=== PATIENT | male | born 1975 | race Caucasian/White ===

== ENCOUNTER 2019-02-08 17:58 | Emergency (ER) | payer SELFPAY ==
[~2019-02-08] VITALS: Ht 182 cm; Wt 100.0 kg
[2019-02-08] MEDS ORDERED: LIDOCAINE 1% INJ 20 ML 20 ML VIAL ONE (18:17)
--- NOTE | 2019-02-08 18:27 | ED Integumentary General ---
General Chief Complaint: Bite-Animal/Human/Insect Stated Complaint: POSS SPIDER BITE ON BUTTOCKS Nursing Triage Note: PT REPORTS A RED AREA TWO NIGHTS AGO ON HIS BUTTOCKS. HE REPORTS IT IS LARGER AND HE NOW HAS A FEVER. HE TOOK 800MG IBUPROFEN 2 HOURS AGO Source: patient Exam Limitations: no limitations History of Present Illness Date Seen by Provider: Feb 08, 2019 Time Seen by Provider: 18:20 Initial Comments Patient complains of questionable spider bite to right buttock for 2 days. It is gotten larger in size and more painful. He has some bloody discharge from the wound. He says he has a temperature of 102 this morning. Allergies and Home Medications Patient Home Medication List Home Medication List Reviewed: Yes Review of Systems Review of Systems Constitutional: fever, malaise Respiratory: no symptoms reported Cardiovascular: no symptoms reported Skin: see HPI Past Olzeihz-Xlophf-Ypzzwd Hx Patient Social History Alcohol Use: Denies Use Recreational Drug Use: No Smoking Status: Current Everyday Smoker Type Used: Cigarettes 2nd Hand Smoke Exposure: No Recent Foreign Travel: No Contact w/Someone Who Travel: No Recent Infectious Disease Expo: No Recent Hopitalizations: No Physical Abuse: No Sexual Abuse: No Mistreated: No Fear: No Seasonal Allergies Seasonal Allergies: No Past Medical History Surgeries: Yes (RIGHT ANKLE) Respiratory: No Cardiac: No Neurological: No Genitourinary: No Gastrointestinal: No Musculoskeletal: No Endocrine: No HEENT: No Cancer: No Psychosocial: No Integumentary: No Blood Disorders: No Physical Exam Vital Signs Vital Signs - First Documented 02/08/19 18:10 Temp 37.9 Pulse 124 Resp 20 B/P (MAP) 121/73 (89) O2 Delivery Room Air Capillary Refill : Less Than 3 Seconds General Appearance: WD/WN, no apparent distress Neck: supple Cardiovascular: regular rate, rhythm Respiratory: lungs clear Extremities: normal inspection Neurologic/Psychiatric: alert, normal mood/affect Skin: normal color, warm/dry, other (large red fluctuant tender mass (plum size) 2 right mid buttocks) Procedures/Interventions I&D : Site: R buttocks Blade Size: 11 I & D Procedure: betadine prep, Wound Packing Packing/Drain: Idoform 02/10 Progress About 10 mL of pus and blood was obtained. Wound was packed with iodoform gauze. Patient tolerated procedure well. He was anesthetized with 1 percent lidocaine without epinephrine. Progress/Results/Core Measures Results/Orders Vital Signs/I&O 02/08/19 18:10 Temp 37.9 Pulse 124 Resp 20 B/P (MAP) 121/73 (89) O2 Delivery Room Air Blood Pressure Mean: 89 Departure Impression Primary Impression: Abscess of right buttock Disposition: 01 HOME, SELF-CARE Condition: Improved Departure-Patient Inst. Decision time for Depature: 18:38 Patient Instructions: Abscess Drainage, Percutaneous (DC) Add. Discharge Instructions: Take antibiotics as prescribed. Sitz baths twice daily. Low back in 48 hours. See your doctor for follow-up in 48 hours. If symptoms worsen (high fevers worsening pain or spreading of redness) seek medical attention preferably at a hospital with surgical and inpatient capabilities. All discharge instructions reviewed with patient and/or family. Voiced understanding. Scripts Sulfamethoxazole/Trimethoprim (Bactrim Ds Tablet) 1 Each Tablet 1 EACH PO BID, #20 TAB Prov: SAMMY ARREDONDO MD 02/08/19 SAMMY ARREDONDO MD Feb 08, 2019 18:27
[2019-02-08] MEDS ORDERED: LIDOCAINE 1% INJ 20 ML 20 ML VIAL INJ ONE (18:30)
[2019-02-08] MEDS ORDERED: SULF1TAB35 PO (18:39)
[2019-02-08 18:50] VITALS: BP 121/73
== END 2019-02-08 18:54 | disposition home or self-care (01) ==
LOC: EDUNIT# 17:58 → ER FS 18:01
DX: L02.31 Cutaneous abscess of buttock (principal); F17.210 Nicotine dependence, cigarettes, uncomplicated
CPT/HCPCS: 46050

== ENCOUNTER 2019-02-09 23:59 | Inpatient (IN) | payer SELFPAY ==
[~2019-02-09] VITALS: Ht 183 cm; Wt 103.4 kg
[~2019-02-09 23:59] MED LIST: SULF1TAB35 PO
[2019-02-10] MEDS ORDERED: LACTATED RINGERS 1,000 ML IV ONE (01:07)
[2019-02-10] MEDS ORDERED: PIPERACILLIN SODIUM/TAZOBACTAM 4.5 GM in NS (IVPB) 100 ML IV ONE (01:15)
[2019-02-10] MEDS ORDERED: KETOROLAC 30 MG/ML VIAL IVP ONE (01:15)
[2019-02-10] MEDS ORDERED: VANCOMYCIN INJECTION 1,000 MG in NS (IVPB) 250 ML IV ONE (01:15)
[2019-02-10 01:20] LABS: BASOPHILS % (AUTO) 0 % (0-10); EOSINOPHILS # (AUTO) 0.3 10^3/uL (0.0-0.3); EOSINOPHILS % (AUTO) 1 % (0-10); HEMATOCRIT 40 % (40-54); HEMOGLOBIN 13.3 G/DL (13.3-17.7); LYMPHOCYTES # (AUTO) 1.5 X 10^3 (1.0-4.0); LYMPHOCYTES % (AUTO) 7 % (12-44); MEAN CORPUSCULAR HEMOGLOBIN 30 PG (25-34); MEAN CORPUSCULAR HGB CONC 34 G/DL (32-36); MEAN CORPUSCULAR VOLUME 88 FL (80-99); MEAN PLATELET VOLUME 9.3 FL (7.4-10.4); MONOCYTES % (AUTO) 9 % (0-12); NEUTROPHILS % (AUTO) 82 % (42-75); PLATELET COUNT 296 10^3/uL (130-400); RED CELL DISTRIBUTION WIDTH 13.1 % (10.0-14.5); WHITE BLOOD COUNT 20.8 10^3/uL (4.3-11.0)
[2019-02-10 01:24] LABS: BILIRUBIN,URINE NEGATIVE (NEGATIVE); CLARITY,URINE CLEAR; COLOR,URINE YELLOW; GLUCOSE, URINE (UA) NEGATIVE (NEGATIVE); KETONES,URINE NEGATIVE (NEGATIVE); LEUKOCYTE ESTERASE ,URINE NEGATIVE (NEGATIVE); NITRITE,URINE NEGATIVE (NEGATIVE); PROTEIN,URINE TRACE (NEGATIVE)
[2019-02-10 01:32] LABS: INR 1.2 (0.8-1.4); PROTHROMBIN TIME PATIENT 15.6 SEC (12.2-14.7)
[2019-02-10 01:34] LABS: ALANINE AMINOTRANSFERASE 14 U/L (0-55); ALKALINE PHOSPHATASE 83 U/L (40-136); BILIRUBIN,TOTAL 0.3 MG/DL (0.1-1.0); BUN/CREATININE RATIO 8; CALCIUM 9.8 MG/DL (8.5-10.1); CARBON DIOXIDE 22 MMOL/L (21-32); CHLORIDE 101 MMOL/L (98-107); CREATININE SERUM 0.98 MG/DL (0.60-1.30); GFR ESTIMATED > 60; GLUCOSE 117 MG/DL (70-105); POTASSIUM 3.9 MMOL/L (3.6-5.0); SODIUM 135 MMOL/L (135-145); TOTAL PROTEIN 7.1 GM/DL (6.4-8.2)
[2019-02-10 01:44] LABS: AMPHETAMINE SCREEN, URINE POSITIVE (NEGATIVE); BARBITURATE SCREEN URINE NEGATIVE (NEGATIVE); BENZODIAZEPINES SCREEN URINE POSITIVE (NEGATIVE); CANNABINOID SCREEN, URINE NEGATIVE (NEGATIVE); COCAINE SCREEN URINE NEGATIVE (NEGATIVE); METHADONE STAT NEGATIVE (NEGATIVE); METHAMPHETAMINE SCREEN URINE S POSITIVE (NEGATIVE); OPIATE SCREEN URINE NEGATIVE (NEGATIVE); OXYCODONE STAT NEGATIVE (NEGATIVE); PROPOXYPHENE STAT NEGATIVE (NEGATIVE); TRICYCLIC ANTIDEPRESSANTS SCRE NEGATIVE (NEGATIVE)
[2019-02-10 01:45] LABS: BACTERIA,URINE TRACE /HPF; SQUAMOUS EPITHELIAL CELL,UR RARE /HPF
--- NOTE | 2019-02-10 02:10 | ED Integumentary General ---
General Chief Complaint: Skin/Wound Problems Stated Complaint: CYST ON TAILBONE,FEVER Nursing Triage Note: red/swelling to i/d site, abdominal cramping, headache. Source: patient Allergies and Home Medications Allergies Coded Allergies: No Known Drug Allergies (Unverified , 02/08/19) Home Medications Sulfamethoxazole/Trimethoprim 1 Each Tablet, 1 EACH PO BID Prescribed by: SAMMY ARREDONDO on 02/08/19 [id number] Past Wrbmcjj-Tkgxru-Hudnef Hx Patient Social History Alcohol Use: Rarely Uses Recreational Drug Use: No Smoking Status: Current Everyday Smoker Type Used: Cigarettes 2nd Hand Smoke Exposure: No Recent Foreign Travel: No Contact w/Someone Who Travel: No Recent Infectious Disease Expo: No Recent Hopitalizations: No Physical Abuse: No Sexual Abuse: No Mistreated: No Fear: No Immunizations Up To Date Tetanus Booster (TDap): Unknown Seasonal Allergies Seasonal Allergies: No Past Medical History Surgeries: Yes (RIGHT ANKLE) Orthopedic Respiratory: No Cardiac: No Neurological: No Genitourinary: No Gastrointestinal: No Musculoskeletal: No Endocrine: No HEENT: No Cancer: No Psychosocial: No Integumentary: Yes Recent Skin Changes Blood Disorders: No Physical Exam Vital Signs Vital Signs - First Documented 02/10/19 00:46 Temp 37.2 Pulse 123 Resp 20 B/P (MAP) 117/76 (90) Pulse Ox 100 O2 Delivery Room Air Capillary Refill : Less Than 3 Seconds Progress/Results/Core Measures Results/Orders Lab Results Laboratory Tests Test 02/10/19 00:50 02/10/19 00:55 Range/Units Urine Color YELLOW Urine Clarity CLEAR Urine pH 6.0 5-9 Urine Specific [place] 1.025 H 1.016-1.022 Urine Protein TRACE NEGATIVE Urine Glucose (UA) NEGATIVE NEGATIVE Urine Ketones NEGATIVE NEGATIVE Urine Nitrite NEGATIVE NEGATIVE Urine Bilirubin NEGATIVE NEGATIVE Urine Urobilinogen 2.0 < = 1.0 MG/DL Urine Leukocyte Esterase NEGATIVE NEGATIVE Urine RBC (Auto) 2+ H NEGATIVE Urine RBC NONE /HPF Urine WBC NONE /HPF Urine Squamous Epithelial Cells RARE /HPF Urine Crystals NONE /LPF Urine Bacteria TRACE /HPF Urine Casts NONE /LPF Urine Mucus NEGATIVE /LPF Urine Culture Indicated CULTURE PENDING Urine Opiates Screen NEGATIVE NEGATIVE Urine Oxycodone Screen NEGATIVE NEGATIVE Urine Methadone Screen NEGATIVE NEGATIVE Urine Propoxyphene Screen NEGATIVE NEGATIVE Urine Barbiturates Screen NEGATIVE NEGATIVE Ur Tricyclic Antidepressants Screen NEGATIVE NEGATIVE Urine Phencyclidine Screen NEGATIVE NEGATIVE Urine Amphetamines Screen POSITIVE H NEGATIVE Urine Methamphetamines Screen POSITIVE H NEGATIVE Urine Benzodiazepines Screen POSITIVE H NEGATIVE Urine Cocaine Screen NEGATIVE NEGATIVE Urine Cannabinoids Screen NEGATIVE NEGATIVE White Blood Count 20.8 H 4.3-11.0 10^3/uL Red Blood Count 4.51 4.35-5.85 10^6/uL Hemoglobin 13.3 13.3-17.7 G/DL Hematocrit 40 40-54 % Mean Corpuscular Volume 88 80-99 FL Mean Corpuscular Hemoglobin 30 25-34 PG Mean Corpuscular Hemoglobin Concent 34 32-36 G/DL Red Cell Distribution Width 13.1 10.0-14.5 % Platelet Count 296 130-400 10^3/uL Mean Platelet Volume 9.3 7.4-10.4 FL Neutrophils (%) (Auto) 82 H 42-75 % Lymphocytes (%) (Auto) 7 L 12-44 % Monocytes (%) (Auto) 9 0-12 % Eosinophils (%) (Auto) 1 0-10 % Basophils (%) (Auto) 0 0-10 % Neutrophils # (Auto) 17.0 H 1.8-7.8 X 10^3 Lymphocytes # (Auto) 1.5 1.0-4.0 X 10^3 Monocytes # (Auto) 2.0 H 0.0-1.0 X 10^3 Eosinophils # (Auto) 0.3 0.0-0.3 10^3/uL Basophils # (Auto) 0.0 0.0-0.1 10^3/uL Neutrophils % (Manual) 86 % Lymphocytes % (Manual) 7 % Monocytes % (Manual) 7 % Prothrombin Time 15.6 H 12.2-14.7 SEC INR Comment 1.2 0.8-1.4 Activated Partial Thromboplast Time 35 24-35 SEC Sodium Level 135 135-145 MMOL/L Potassium Level 3.9 3.6-5.0 MMOL/L Chloride Level 101 98-107 MMOL/L Carbon Dioxide Level 22 21-32 MMOL/L Anion Gap 12 5-14 MMOL/L Blood Urea Nitrogen 8 7-18 MG/DL Creatinine 0.98 0.60-1.30 MG/DL Estimat Glomerular Filtration Rate > 60 BUN/Creatinine Ratio 8 Glucose Level 117 H 70-105 MG/DL Lactic Acid Level 1.00 0.50-2.00 MMOL/L Calcium Level 9.8 8.5-10.1 MG/DL Corrected Calcium 9.8 8.5-10.1 MG/DL Total Bilirubin 0.3 0.1-1.0 MG/DL Aspartate Amino Transf (AST/SGOT) 13 5-34 U/L Alanine Aminotransferase (ALT/SGPT) 14 0-55 U/L Alkaline Phosphatase 83 40-136 U/L Total Protein 7.1 6.4-8.2 GM/DL Albumin 4.0 3.2-4.5 GM/DL Serum Alcohol < 10 <10 MG/DL My Orders Orders - AARON OSBORNE DO Ed Iv/Invasive Line Start (02/10/19 01:07) Monitor-Rhythm Ecg Trace Only (02/10/19 01:07) Alcohol (02/10/19 01:07) Cbc With Automated Diff (02/10/19 01:07) Comprehensive Metabolic Panel (02/10/19 01:07) Drug Screen Stat (Urine) (02/10/19 01:07) Lactic Acid Analyzer (02/10/19 01:07) Protime With Inr (02/10/19 01:07) Partial Thromboplastin Time (02/10/19 01:07) Ua Culture If Indicated (02/10/19 01:07) Blood Culture (02/10/19 01:07) Wound Culture (02/10/19 01:07) Ed Iv/Invasive Line Start (02/10/19 01:07) Lactated Ringers (Lr 1000 Ml Iv Solution (02/10/19 01:07) Urine Culture (02/10/19 01:07) Vital Signs Adult Sepsis Patie Q15M (02/10/19 01:07) O2 (02/10/19 01:07) Remove Rings In Anticipation O (02/10/19 01:07) Piperacillin Sodium/Tazobactam (Zosyn Vi (02/10/19 01:15) Vancomycin Injection (Vancomycin Injecti (02/10/19 01:15) Ketorolac Injection (Toradol Injection) (02/10/19 01:15) Ct Abdomen/Pelvis W (02/10/19 01:07) Manual Differential (02/10/19 00:55) Iohexol Injection (Omnipaque 350 Mg/Ml 1 (02/10/19 02:15) Received Contrast (Hold Metformin- Contr (02/10/19 02:15) Ns (Ivpb) (Sodium Chloride 0.9% Ivpb Bag (02/10/19 02:15) Ed Iv/Invasive Line Start (02/10/19 02:42) Ns Iv 1000 Ml (Sodium Chloride 0.9%) (02/10/19 02:42) Ed Iv/Invasive Line Start (02/10/19 02:42) Ns Iv 1000 Ml (Sodium Chloride 0.9%) (02/10/19 02:42) Fentanyl Injection (Sublimaze Injection (02/10/19 03:30) Medications Given in ED Current Medications Medications Dose Ordered Sig/Luciano Route Start Time Stop Time Status Last Admin Dose Admin Iohexol 100 ml ONCE ONCE IV 02/10/19 02:15 02/10/19 02:16 DC 02/10/19 02:08 100 ML Ketorolac Tromethamine 30 mg ONCE ONCE IVP 02/10/19 01:15 02/10/19 01:16 DC 02/10/19 01:29 30 MG Lactated Ringer's 1,000 ml @ 0 mls/hr Q0M ONCE IV 02/10/19 01:07 02/10/19 01:11 DC 02/10/19 01:29 0 MLS/HR Piperacillin Sod/ Tazobactam Sod 4.5 gm/Sodium Chloride 100 ml @ 200 mls/hr ONCE ONCE IV 02/10/19 01:15 02/10/19 01:44 DC 02/10/19 01:31 200 MLS/HR Sodium Chloride 100 ml ONCE ONCE IV 02/10/19 02:15 02/10/19 02:16 DC 02/10/19 02:09 80 ML Vancomycin HCl 1000 mg/Sodium Chloride 250 ml @ 250 mls/hr ONCE ONCE IV 02/10/19 01:15 02/10/19 02:14 DC 02/10/19 01:29 250 MLS/HR Vital Signs/I&O 02/10/19 02/10/19 00:46 01:29 Temp 37.2 37.2 Pulse 123 Resp 20 B/P (MAP) 117/76 (90) Pulse Ox 100 O2 Delivery Room Air Blood Pressure Mean: 90 Departure Communication (Admissions) 3852--SPOKE WITH DR. ROY, HOSPITALIST, ACCEPTS PT FOR ADMIT. Impression Disposition: 09 ADMITTED INPATIENT Condition: Stable Admissions Decision to Admit Reason: Admit from ER (General) Decision to Admit/Date: Feb 10, 2019 Time/Decision to Admit Time: 03:15 Departure-Patient Inst. Referrals: NO,LOCAL PHYSICIAN (PCP/Family) Primary Care Physician AARON OSBORNE DO Feb 10, 2019 02:10
[2019-02-10] MEDS ORDERED: NS 100 ML (IVPB) BAG IV ONE (02:15)
[2019-02-10] MEDS ORDERED: IOHEXOL 350 MG/ML 100 ML (OMNIPAQUE 350) VIAL IV ONE (02:15)
[2019-02-10] MEDS ORDERED: HOLD METFORMIN - RECEIVED CONTRAST 20 ML VIAL IV SCH (02:15)
[2019-02-10 02:35] LABS: LYMPHOCYTES % (MANUAL) 7 %; MONOCYTES % (MANUAL) 7 %; NEUTROPHILS % (MANUAL) 86 %
[2019-02-10] MEDS ORDERED: NS IV 1000 ML 1,000 ML IV SCH ×2 (02:42)
[2019-02-10] MEDS ORDERED: fentaNYL INJECTION 100 MCG/2 ML AMP IVP ONE (03:30)
--- NOTE | 2019-02-10 04:00 | NUR ---
Cassie Lea admitted to room 428-1, with an admitting diagnosis of SEPSIS\CELLULITIS R BUTTOCK, on 02/10/19 from ED via , accompanied by ED STAFF.CASSIE LEA introduced to surroundings, call light, bed controls, phone, TV, temperature control, lights, meal times, smoking policy, visitor policy, side rail policy, bathrooms and showers. Patient Rights given to patient in the handbook.CASSIE LEA verbalizes understanding that [facility] is not responsible for the loss or damage to any personal effects or valuables that are kept in the patients posession during their hospitalization.
[2019-02-10] MEDS ORDERED: ACETAMINOPHEN 500 MG TAB (TYLENOL) PO PRN (04:45)
[2019-02-10] MEDS ORDERED: fentaNYL INJECTION 100 MCG/2 ML AMP IV PRN (04:45)
[2019-02-10] MEDS ORDERED: VANCOMYCIN 1 GM/NS 250 ML IVPB IV SCH ×2 (05:00)
[2019-02-10] MEDS ORDERED: ONDANSETRON 4 MG/2 ML (SDV) Z0FRAN IV PRN (05:00)
[2019-02-10] MEDS: NS IV 1000 ML 1,000 ML IV SCH ×3 (05:13→18:04)
[2019-02-10] MEDS: KETOROLAC 30 MG/ML VIAL IV PRN ×2 (05:26→10:51)
[2019-02-10] MEDS ORDERED: NS (IVPB) 100 ML ONE (06:23)
[2019-02-10] MEDS ORDERED: PIPERACILLIN/TAZO 4.5 GM VIAL (ZOSYN) IV ONE (06:23)
[2019-02-10 06:53] LABS: BASOPHILS % (AUTO) 0 % (0-10); EOSINOPHILS # (AUTO) 0.3 10^3/uL (0.0-0.3); EOSINOPHILS % (AUTO) 2 % (0-10); HEMATOCRIT 35 % (40-54); HEMOGLOBIN 11.4 G/DL (13.3-17.7); LYMPHOCYTES # (AUTO) 1.4 X 10^3 (1.0-4.0); LYMPHOCYTES % (AUTO) 8 % (12-44); MEAN CORPUSCULAR HEMOGLOBIN 29 PG (25-34); MEAN CORPUSCULAR HGB CONC 33 G/DL (32-36); MEAN CORPUSCULAR VOLUME 89 FL (80-99); MEAN PLATELET VOLUME 9.6 FL (7.4-10.4); MONOCYTES # (AUTO) 1.3 X 10^3 (0.0-1.0); MONOCYTES % (AUTO) 8 % (0-12); NEUTROPHILS # (AUTO) 13.5 X 10^3 (1.8-7.8); NEUTROPHILS % (AUTO) 82 % (42-75); PLATELET COUNT 247 10^3/uL (130-400); WHITE BLOOD COUNT 16.4 10^3/uL (4.3-11.0)
[2019-02-10 07:12] LABS: ALANINE AMINOTRANSFERASE 10 U/L (0-55); ALBUMIN 3.2 GM/DL (3.2-4.5); ALKALINE PHOSPHATASE 79 U/L (40-136); BILIRUBIN,TOTAL 0.3 MG/DL (0.1-1.0); BUN/CREATININE RATIO 9; CALCIUM 8.5 MG/DL (8.5-10.1); CARBON DIOXIDE 19 MMOL/L (21-32); CHLORIDE 107 MMOL/L (98-107); CREATININE SERUM 0.81 MG/DL (0.60-1.30); GFR ESTIMATED > 60; GLUCOSE 108 MG/DL (70-105); POTASSIUM 3.6 MMOL/L (3.6-5.0); SODIUM 137 MMOL/L (135-145); TOTAL PROTEIN 5.6 GM/DL (6.4-8.2)
[2019-02-10 07:32] VITALS: BP 114/70
--- NOTE | 2019-02-10 07:50 | NUR ---
VANCOMYCIN DOSING CrCl 131.9 RECEIVED 1 GM @0100 02/10 START MAINTENANCE DOSE 1500 MG @ 0900 02/10 VANCOMYCIN TROUGH DUE 02/11 @0800 IF TROUGH >20, HOLD 02/11 0900 DOSE
[2019-02-10] MEDS ORDERED: FLU QUADRIvalent (5+ YOA) 2019-2020 (AFLURIA) 0.5 ML IM ONE (08:00)
--- NOTE | 2019-02-10 08:27 | Diagnostic Imaging Report ---
PROCEDURE: CT abdomen and pelvis with contrast. TECHNIQUE: Multiple contiguous axial images were obtained through the abdomen and pelvis after administration of intravenous contrast. Auto Exposure Controls were utilized during the CT exam to meet ALARA standards for radiation dose reduction. INDICATION: Pain and swelling right buttock. COMPARISON: None. FINDINGS: Lung bases are clear. The liver, gallbladder, pancreas, spleen, adrenals are negative. Nonobstructing calyceal tip 0.4 cm renal stone in the lower pole of the left kidney. No hydronephrosis. Bladder is negative. Negative appendix. No free intraperitoneal air or fluid. No lymphadenopathy. No evidence of bowel obstruction or inflammation. Partially visualized fat stranding in the subcutaneous tissues overlying the right gluteal musculature. No fluid collections in the lbtyg-ey-ellf. IMPRESSION: 1. Inflammatory changes in the subcutaneous tissues of the right buttock are partially visualized. There are no fluid collections within the [id number]. 2. No acute CT findings in the abdomen or pelvis. Dictated by: Dictated on workstation # [id number]
[2019-02-10] MEDS: VANCOMYCIN 1500 MG/NS 500 ML IVPB IV SCH ×4 (09:08→20:44)
[2019-02-10] MEDS: PIPERACILLIN/TAZO 4.5 GM/NS 100 ML IV SCH ×6 (09:08→23:19)
[2019-02-10] MEDS: MUPIROCIN 2% OINT 22 GM (BACTROBAN) TUBE TOP SCH ×3 (09:58→20:44)
[2019-02-10 12:00] VITALS: BP 94/61
--- NOTE | 2019-02-10 12:38 | History & Physical-Hospitalist ---
History of Present Illness HPI/Chief Complaint Pt is a 43-year-old male with no known medical history active illicit drug use who presented to the emergency department after a spider bite resulted in abscess. He states that his symptoms started on 02/06 when he thought he got a spider bite. States this progressed and he was seen at [facility] and sta rted on antibiotic. Despite this it did not improve and he returned to the emergency room on 02/08 and underwent I&D. He was then started on Bactrim DS. He continued to worsen and developed fevers up to 103.7. He denies any history of this. He does complain of significant pain in his right buttocks still. He does state that he occasionally uses meth but does not inject and has not used it for "a while." Source: patient Date Seen 02/10/19 Time Seen by a Provider: 12:36 Attending Physician Isael Jordan MD PCP No,Local Physician Referring Physician Date of Admission Feb 10, 2019 at 03:15 Home Medications & Allergies Home Medications Reviewed patient Home Medication Reconciliation performed by pharmacy medication reconciliations sleep technician and/or nursing. Patients Allergies have been reviewed. Allergies Allergies Coded Allergies No Known Drug Allergies (Unverified02/08/19) Past Tljrbnw-Aiuvmu-Eogxkj Hx Past Med/Social Hx: Reviewed Nursing Past Med/Soc Hx Patient Social History Alcohol Use: Rarely Uses Recreational Drug Use: Yes Smoking Status: Current Everyday Smoker Type Used: Cigarettes 2nd Hand Smoke Exposure: No Recent Foreign Travel: No Contact w/other who traveled: No Recent Hopitalizations: No Recent Infectious Disease Expo: No Immunizations Up To Date Tetanus Booster (TDap): Unknown Seasonal Allergies Seasonal Allergies: No Past Medical History Surgeries: Orthopedic Skin/Integumentary: Recent Skin Changes History of Blood Disorders: No Family History Reviewed Nursing Family Hx Diabetes, Hypertension Review of Systems Constitutional: chills, fever, weakness EENTM: no symptoms reported Respiratory: no symptoms reported Cardiovascular: no symptoms reported Gastrointestinal: abdominal pain; No constipation, No diarrhea, No nausea, No vomiting Genitourinary: no symptoms reported Musculoskeletal: see HPI Skin: see HPI Psychiatric/Neurological: Headache Physical Exam Physical Exam Vital Signs Vital Signs - First Documented 02/10/19 00:46 Temp 37.2 Pulse 123 Resp 20 B/P (MAP) 117/76 (90) Pulse Ox 100 O2 Delivery Room Air Capillary Refill : Less Than 3 Seconds Height, Weight, BMI Height: '" Weight: lbs. oz. kg; 29.00 BMI Method: General Appearance: No Apparent Distress, WD/WN HEENT: Moist Mucous Membranes; No Scleral Icterus (L), No Scleral Icterus (R) Neck: Full Range of Motion, Normal Inspection, Supple Respiratory: Lungs Clear, No Accessory Muscle Use, No Respiratory Distress Cardiovascular: Regular Rate, Rhythm, No Murmur Gastrointestinal: Normal Bowel Sounds, Non Tender, Soft; No Distended, No Guarding Genital/Rectal: Other (purulent drainage from medial buttock, minimal erythema but edema noted) Neurologic/Psychiatric: Alert, Oriented x3, Normal Mood/Affect; No Aphasia, No Facial Droop Skin: Tattoos/Piercings Results Results/Procedures Labs Laboratory Tests 02/10/19 00:55 02/10/19 05:54 Patient resulted labs reviewed. Imaging Date of Exam:02/10/19 CT ABDOMEN/PELVIS W PROCEDURE: CT abdomen and pelvis with contrast. TECHNIQUE: Multiple contiguous axial images were obtained through the abdomen and pelvis after administration of intravenous contrast. Auto Exposure Controls were utilized during the CT exam to meet ALARA standards for radiation dose reduction. INDICATION: Pain and swelling right buttock. COMPARISON: None. FINDINGS: Lung bases are clear. The liver, gallbladder, pancreas, spleen, adrenals are negative. Nonobstructing calyceal tip 0.4 cm renal stone in the lower pole of the left kidney. No hydronephrosis. Bladder is negative. Negative appendix. No free intraperitoneal air or fluid. No lymphadenopathy. No evidence of bowel obstruction or inflammation. Partially visualized fat stranding in the subcutaneous tissues overlying the right gluteal musculature. No fluid collections in the fvynd-zx-phbd. IMPRESSION: 1. Inflammatory changes in the subcutaneous tissues of the right buttock are partially visualized. There are no fluid collections within the tqpvn-ta-[id number]. 2. No acute CT findings in the abdomen or pelvis. Assessment/Plan Admission Diagnosis Sepsis from right Buttock Abscess and Cellulitis Admission Status: Inpatient Order (span 2 midnights) Reason for Inpatient Admission: failed outpatient management Assessment and Plan Sepsis from right Buttock Abscess and Cellulitis Tachycardia with leukocytosis Lactic normal, no end organ involvement Continue on Vanc and Zosyn Await cultures Surgery consulted, appreciate recs Illicit drug use Encourage cessation Clinical Quality Measures DVT/VTE Risk/Contraindication: Risk Factor Score Per Nursin RFS Level Per Nursing on Admit: 4+=Very High ISAEL JORDAN MD Feb 10, 2019 12:38
[2019-02-10] MEDS: fentaNYL INJECTION 100 MCG/2 ML AMP IV PRN ×2 (12:58→21:21)
--- NOTE | 2019-02-10 15:09 | CONSULTATION REPORT ---
DATE OF SERVICE: 02/10/2019 ADMITTING PHYSICIAN: Dr. Jordan. HISTORY OF PRESENT ILLNESS: The patient is a 43-year-old male who was admitted for pain in the right buttock region. He reports that he developed redness and swelling approximately two days ago and was seen at [facility] where he underwent an incision and drainage. He states that the redness and pain worsened over time. He does have several risk factors including smoking as well as a methamphetamine use. Upon examination, he does have redness and pain along the right buttock; however, there is no fluctuance to indicate any abscess at this time. The previous opening site from the previous incision and drainage appears to have closed. However, again, there is no fluctuance in this region as well. Since he was placed on IV antibiotics, his white count has decreased. PAST MEDICAL HISTORY: None. PAST SURGICAL HISTORY: Right ankle ORIF. ALLERGIES: No known drug allergies. MEDICATIONS: None. SOCIAL HISTORY: Positive smoke. Positive alcohol. Positive methamphetamine and marijuana use. FAMILY HISTORY: Diabetes. Vital signs - stable, afebrile. REVIEW OF SYSTEMS: Well-nourished male, currently guarded secondary to the buttock pain; however, pain is under control with medication. No cough or sputum production. No chest pain, palpitations, diaphoresis. No nausea or vomiting, no diarrhea or constipation. No red blood per rectum, no dark tarry stools. He reports that he did have fever and chills at home; however, not since being admitted. No recent inadvertent weight loss. PHYSICAL EXAMINATION: CHEST: A few scattered wheezes bilaterally. HEART: Regular, no murmurs. EXTREMITIES: No lower extremity edema, negative Homans sign. HEENT: No scleral icterus. NECK: No cervical lymphadenopathy. ABDOMEN: Soft, nontender, nondistended. SKIN: Along the right buttock running longitudinally along the cleft, there is redness and erythema as well as pain upon palpation; however, there is no fluctuance to indicate any abscess at this time. ASSESSMENT AND PLAN: A 43-year-old male with cellulitis, right buttock. We will continue to monitor. If abscess develops, he will most likely need an incision and drainage in the operating room due to the location and pain; however, at this time, it appears that he is responding to IV antibiotics. Job ID: [id number] DocumentID: [id number] Dictated Date: 02/10/2019 13:19:44 Media Theorist And Author Of Date: 02/10/2019 15:08:44 Dictated By: URMILA GOTTLIEB MD
[2019-02-10 16:30] VITALS: BP 91/55
[2019-02-10 20:00] VITALS: BP 120/77
[2019-02-11] VITALS (7 sets, daily range): BP systolic 105–132; BP diastolic 70–79
[2019-02-11] MEDS: KETOROLAC 30 MG/ML VIAL IV PRN ×2 (00:57→07:02)
[2019-02-11 06:07] LABS: HEMOGLOBIN 11.8 G/DL (13.3-17.7); MEAN PLATELET VOLUME 9.2 FL (7.4-10.4); RED CELL DISTRIBUTION WIDTH 13.1 % (10.0-14.5); WHITE BLOOD COUNT 14.8 10^3/uL (4.3-11.0)
[2019-02-11 06:30] LABS: BUN/CREATININE RATIO 8; CALCIUM 8.7 MG/DL (8.5-10.1); CARBON DIOXIDE 20 MMOL/L (21-32); CHLORIDE 111 MMOL/L (98-107); CREATININE SERUM 0.78 MG/DL (0.60-1.30); GFR ESTIMATED > 60; GLUCOSE 86 MG/DL (70-105); POTASSIUM 4.3 MMOL/L (3.6-5.0); SODIUM 140 MMOL/L (135-145)
[2019-02-11] MEDS: PIPERACILLIN/TAZO 4.5 GM/NS 100 ML IV SCH ×6 (06:35→22:21)
[2019-02-11] MEDS ORDERED: TROUGH ORDER-PHARMACY XX NR (08:00)
[2019-02-11] MEDS: fentaNYL INJECTION 100 MCG/2 ML AMP IV PRN ×2 (08:27→20:12)
--- NOTE | 2019-02-11 10:25 | Progress Note ---
Subjective Date Seen by a Provider: Feb 11, 2019 Time Seen by a Provider: 09:20 Subjective/Events-last exam Patient seen with Dr. Muniz. Patient reports having some right buttock pain. No nausea/vomiting. Reports that he was having sweats and chills through the night. Focused Exam Lactate Level 02/10/19 00:55: Lactic Acid Level 1.00 Objective Exam Vital Signs Date Time Temp Pulse Resp B/P (MAP) Pulse Ox O2 Delivery O2 Flow Rate FiO2 02/11/19 08:00 36.8 73 20 117/72 (87) 97 Room Air 02/11/19 07:00 76 02/11/19 04:00 36.2 72 20 120/72 (88) 97 Room Air 02/11/19 01:00 78 02/11/19 00:00 37.7 81 21 114/70 (85) 94 Room Air 02/10/19 20:40 Room Air 02/10/19 20:00 37.5 76 18 120/77 (91) 99 Room Air 02/10/19 19:00 79 02/10/19 16:30 36.8 88 20 91/55 (67) 99 Room Air 02/10/19 13:00 83 02/10/19 12:00 37.2 89 20 94/61 (72) 99 Room Air I & O 02/11/19 07:00 Intake Total 3860 ml Balance 3860 ml Capillary Refill : Less Than 3 Seconds General Appearance: No Apparent Distress, WD/WN Neck: Full Range of Motion, Normal Inspection, Supple Respiratory: Normal Breath Sounds, No Accessory Muscle Use, No Respiratory Distress Cardiovascular: Regular Rate, Rhythm, No Murmur Gastrointestinal: normal bowel sounds, non tender, soft Extremity: Normal Capillary Refill, Normal Inspection, Normal Range of Motion Neurologic/Psychiatric: Alert, Oriented x3 Skin: Tattoos/Piercings, Other (Right buttocks towards the medial side does have some mild redness/erythema as well as firm to palpation. No fluctuance noted.) Results Lab Laboratory Tests 02/11/19 05:40: White Blood Count 14.8H, Red Blood Count 4.00L, Hemoglobin 11.8L, Hematocrit 36L , Mean Corpuscular Volume 90, Mean Corpuscular Hemoglobin 30, Mean Corpuscular Hemoglobin Concent 33, Red Cell Distribution Width 13.1, Platelet Count 266, Mean Platelet Volume 9.2, Sodium Level 140, Potassium Level 4.3, Chloride Level 111H, Carbon Dioxide Level 20L, Anion Gap 9, Blood Urea Nitrogen 6L, Creatinine 0.78, Estimat Glomerular Filtration Rate > 60, BUN/Creatinine Ratio 8, Glucose Level 86, Calcium Level 8.7 02/11/19 08:00: Vancomycin Level Trough 5.2L Microbiology 02/10/19 Gram Stain - Final, Resulted 02/10/19 Wound Culture - Preliminary, Resulted Staphylococcus aureus Assessment/Plan Assessment/Plan Assess & Plan/Chief Complaint A 43 year old male with right buttock cellulitis VSS WBC down to 14 Wound culture did show MRSA and patient on vancomycin Will restart diet and continue to monitor. Continue with abx Pain and nausea meds prn. Clinical Quality Measures DVT/VTE Risk/Contraindication: Risk Factor Score Per Nursin RFS Level Per Nursing on Admit: 4+=Very High JEN QUESADA CINEMA OPERATOR Feb 11, 2019 10:25
[2019-02-11] MEDS: NS IV 1000 ML 1,000 ML IV SCH ×2 (10:29→12:37)
[2019-02-11] MEDS: MUPIROCIN 2% OINT 22 GM (BACTROBAN) TUBE TOP SCH ×3 (10:31→22:23)
[2019-02-11] MEDS: VANCOMYCIN 1500 MG/NS 500 ML IVPB IV SCH ×4 (11:11→16:39)
[2019-02-11] MEDS: HYDROcodone/APAP 5 MG/325 MG (LORTAB) TAB PO PRN ×3 (12:15→23:38)
--- NOTE | 2019-02-11 12:41 | Progress Note-Pre Operative ---
Pre-Operative Progress Note H&P Reviewed The H&P was reviewed, patient examined and no changes noted. Date Seen by Provider: Feb 11, 2019 Time Seen by Provider: 12:40 Date H&P Reviewed: Feb 11, 2019 Time H&P Reviewed: 12:40 Pre-Operative Diagnosis: recurrent right buttock abscess URMILA GOTTLIEB MD Feb 11, 2019 12:41
--- NOTE | 2019-02-11 13:39 | Progress Note - Hospitalist ---
Subjective HPI/CC On Admission Date Seen by Provider: Feb 11, 2019 Time Seen by Provider: 13:37 Pt is a 43-year-old male with no known medical history active illicit drug use who presented to the emergency department after a spider bite resulted in abscess. He states that his symptoms started on 02/06 when he thought he got a spider bite. States this progressed and he was seen at [facility] and started on antibiotic. Despite this it did not improve and he returned to the emergency room on 02/08 and underwent I&D. He was then started on Bactrim DS. He continued to worsen and developed fevers up to 103.7. He denies any history of this. He does complain of significant pain in his right buttocks still. He does state that he occasionally uses meth but does not inject and has not used it for "a while. Subjective/Events-last exam Pt reports worsening pain and redness. Discussed with Dr Muniz and plan to go to the OR tomorrow for I&D. Focused Exam Lactate Level 02/10/19 00:55: Lactic Acid Level 1.00 Objective Exam Vital Signs Vital Signs Date Time Temp Pulse Resp B/P (MAP) Pulse Ox O2 Delivery O2 Flow Rate FiO2 02/11/19 12:15 36.3 02/11/19 11:34 69 20 124/79 (94) 96 Room Air Capillary Refill : Less Than 3 Seconds General Appearance: No Apparent Distress, WD/WN Respiratory: Lungs Clear, No Respiratory Distress Cardiovascular: Regular Rate, Rhythm, No Murmur Skin: Tattoos/Piercings, Other (medial buttock with slightly more erythema and same mild edema) Results/Procedures Lab Laboratory Tests 02/11/19 05:40 Patient resulted labs reviewed. Assessment/Plan Assessment and Plan Assess & Plan/Chief Complaint Sepsis from right Buttock Abscess and Cellulitis Continue on Vanc and Zosyn MRSA in culture Surgery consulted, appreciate recs Plan for OR tomorrow Illicit drug use Encourage cessation Diagnosis/Problems Diagnosis/Problems (1) Sepsis Status: Acute Qualifiers: Sepsis type: methicillin resistant Staphylococcus aureus Sepsis acute organ dysfunction status: without acute organ dysfunction Qualified Codes: A41.02 - Sepsis due to methicillin resistant Staphylococcus aureus (2) Cellulitis and abscess of buttock Clinical Quality Measures DVT/VTE Risk/Contraindication: Risk Factor Score Per Nursin RFS Level Per Nursing on Admit: 4+=Very High MANUELA,ISAEL M MD Feb 11, 2019 13:39
[2019-02-11] MEDS ORDERED: NICOTINE 14 MG (NICODERM) PATCH TD ONE (13:45)
[2019-02-12] VITALS (11 sets, daily range): BP systolic 92–122; BP diastolic 52–77
[2019-02-12] MEDS: VANCOMYCIN 1500 MG/NS 500 ML IVPB IV SCH ×4 (00:33→09:36)
[2019-02-12] MEDS: HYDROcodone/APAP 5 MG/325 MG (LORTAB) TAB PO PRN ×3 (03:40→21:18)
[2019-02-12] MEDS: PIPERACILLIN/TAZO 4.5 GM/NS 100 ML IV SCH ×2 (06:18)
[2019-02-12] MEDS ORDERED: TROUGH ORDER-PHARMACY XX NR (08:00)
[2019-02-12] MEDS: NICOTINE PATCH REMOVAL TP SCH (08:39)
[2019-02-12] MEDS: NICOTINE 14 MG (NICODERM) PATCH TD SCH (08:40)
[2019-02-12] MEDS: fentaNYL INJECTION 100 MCG/2 ML AMP IV PRN ×3 (08:41→14:37)
[2019-02-12] MEDS: MUPIROCIN 2% OINT 22 GM (BACTROBAN) TUBE TOP SCH ×3 (08:42→22:52)
[2019-02-12] MEDS: NS IV 1000 ML 1,000 ML IV SCH ×3 (08:45→17:41)
[2019-02-12] MEDS ORDERED: SULF1TAB35 PO (08:57)
[2019-02-12] MEDS ORDERED: IBUP-2055 PO (08:59)
[2019-02-12] MEDS ORDERED: NAPR220T66 PO (08:59)
--- NOTE | 2019-02-12 09:00 | NUR ---
SPOKE WITH THE PT WELL CALLING [facility] TO COMPLETE THE MED REC. THE ONLY PRESCRIPTION THE PT IS CURRENTLY TAKING IS BACTRIM DS. THIS WAS PICKED UP 02-09-2019 FOR #20/10DS. OTC MEDS: IBUPROFEN EUGENE PT SAYS HE TAKES AN OTC NASAL SPRAY BUT DOESNT KNOW THE NAME OF IT, I ASKED IF IT WAS A FLONASE OR NASACORT OR MORE LIKE A SALINE OR AFRIN BUT HE COULD NOT REMEMBER, FOR THIS REASON I LEFT IT OFF THE MED REC.
--- NOTE | 2019-02-12 10:14 | NUR ---
VANCOMYCIN DOSING TROUGH LEVEL 11.8 - MRSA + GOAL 15-20 - INCREASE DOSE TO VANC 1750 MG Q8H CHECK TROUGH LEVEL 02/13 1600 HOLD DOSE AND CONTACT PHARMACY IF LEVEL IS GREATER THAN 20
[2019-02-12] MEDS ORDERED: VANCOMYCIN INJECTION 1,750 MG in NS IV 500 ML 500 ML IV SCH (10:15)
--- NOTE | 2019-02-12 12:46 | Progress Note - Hospitalist ---
Subjective HPI/CC On Admission Date Seen by Provider: Feb 12, 2019 Time Seen by Provider: 08:30 Pt is a 43-year-old male with no known medical history active illicit drug use who presented to the emergency department after a spider bite resulted in abscess. He states that his symptoms started on 02/06 when he thought he got a spider bite. States this progressed and he was seen at [facility] and started on antibiotic. Despite this it did not improve and he returned to the emergency room on 02/08 and underwent I&D. He was then started on Bactrim DS. He continued to worsen and developed fevers up to 103.7. He denies any history of this. He does complain of significant pain in his right buttocks still. He does state that he occasionally uses meth but does not inject and has not used it for "a while. Subjective/Events-last exam He reports having some pain in his back. He denies any fevers or chills. He denies any chest pain or shortness of breath. He denies any abdominal pain, nausea, or vomiting. Focused Exam Lactate Level 02/10/19 00:55: Lactic Acid Level 1.00 Objective Exam Vital Signs Vital Signs Date Time Temp Pulse Resp B/P (MAP) Pulse Ox O2 Delivery O2 Flow Rate FiO2 02/12/19 12:21 75 02/12/19 12:00 36.3 16 116/58 (77) 97 Room Air Capillary Refill : Less Than 3 Seconds General Appearance: No Apparent Distress, WD/WN HEENT: PERRL/EOMI, Pharynx Normal Neck: Normal Inspection, Supple Respiratory: Lungs Clear, Normal Breath Sounds, No Respiratory Distress Cardiovascular: Regular Rate, Rhythm, No Edema, No Murmur Gastrointestinal: Normal Bowel Sounds, Non Tender, Soft Extremity: Normal Inspection, Non Tender, No Pedal Edema Neurologic/Psychiatric: Alert, Oriented x3, No Motor/Sensory Deficits, Normal Mood/Affect Skin: Normal Color, Warm/Dry Lymphatic: No Adenopathy Results/Procedures Lab Patient resulted labs reviewed. Imaging: Reviewed Imaging Report Assessment/Plan Assessment and Plan Assess & Plan/Chief Complaint Cellulitis and abscess of the right buttock Culture growing MRSA Continue vancomycin Stop Zosyn Plan for I&D in the OR today with surgery Methamphetamine abuse Recommend cessation Sepsis, resolved Diagnosis/Problems Diagnosis/Problems (1) Cellulitis and abscess of buttock Status: Acute Clinical Quality Measures DVT/VTE Risk/Contraindication: Risk Factor Score Per Nursin RFS Level Per Nursing on Admit: 4+=Very High TRUNG KINGSTON MD Feb 12, 2019 12:46
[2019-02-12] MEDS ORDERED: proPOfol 200 MG/20 ML (DIPRIVAN) VIAL IV ONE ×2 (13:20→16:02)
[2019-02-12] MEDS ORDERED: LIDOCAINE PF 2% 5 ML (XYLOCAINE) VIAL ONE (13:20)
[2019-02-12] MEDS ORDERED: DEXAMETHASONE 10 MG/ML (DECADRON) 1 ML VIAL ONE (13:20)
[2019-02-12] MEDS ORDERED: ONDANSETRON 4 MG/2 ML (SDV) Z0FRAN ONE (13:20)
[2019-02-12] MEDS ORDERED: fentaNYL INJECTION 100 MCG/2 ML AMP ONE (13:20)
[2019-02-12] MEDS ORDERED: MIDAZOLAM 2 MG/2 ML (VERSED) VIAL ONE (13:22)
--- NOTE | 2019-02-12 14:20 | NUR ---
Pastoral care visit,pt asleep
[2019-02-12] MEDS ORDERED: BUP/EPI 0.5% 1:200,000 (SENSORCAINE) 30 ML VIAL ONE (14:32)
--- NOTE | 2019-02-12 15:06 | NUR ---
"RD ASSESSMENT PMHx: no PMH; hx of illicit drug use (meth); c/o of spider bite PT INTERACTION: Pt was awake and pleasant during nutrition assessment. Pt states current appetite is good and has been for some time. Note avg PO intake of 100% x2d, per chart review. Note pt is currently NPO for upcoming procedure. Pt states following a regular diet at home, and has no issues with chewing/swallowing food at this time. Pt states no recent issues with n/v at this time. Pt states while he hasn't had a BM since 02/06, he doesn't feel constipated. Note pt not currently on bowel regimen per chart review. Pt states no recent wt changes. Note unable to determine recent wt hx, per chart review. Note pt has wound on left buttock d/t spider bite, per chart review. ABNORMAL NUTRITION-RELATED LAB VALUES LOW: BUN 6 HIGH: Cl 111 Est. kcal needs: 1152-6938 kcal | 20-25 kcal/kg Est. Pro needs: 124-145 g Pro | 1.2-1.4 g Pro/kg PES STATEMENT: Inadequate protein intake (NI-5.6.1) related to increased protein needs as evidenced by wounds (left buttock d/t spider bite) INTERVENTION: Note pt is currently NPO. Advance diet to Regular diet when medically able and as tolerated. When diet has been advanced, add Ensure HP (vary) to meals. Provides 160 kcal and 16 g Pro per serving for perceived benefit to wound healing. Will continue to follow and reassess as pt needs and status change. MONITOR/EVALUATE: PO Intake; Plan of Care; Hydration Status; Weight Status; Lab Values Silvestre Chong, MS, RD, LD"
[2019-02-12] MEDS ORDERED: SEVOFLURANE (ULTANE) 15 ML INHAL SOLN ONE (16:02)
--- NOTE | 2019-02-12 16:05 | Progress Note-Post Operative ---
Post-Operative Progess Note Surgeon (s)/Feather Boner (s) Surgeon URMILA GOTTLIEB MD Feather Boner: none Pre-Operative Diagnosis recurrent right buttock abscess Post-Operative Diagnosis same. large ([id number]) Procedure & Operative Findings Date of Procedure 02/12/19 Procedure Performed/Findings incision and drainage and debridement right buttock abscess. Anesthesia Type general LMA Estimated Blood Loss Estimated blood loss (mL): minimal Specimens/Packing Specimens Removed abscess drainage. URMILA GOTTLIEB MD Feb 12, 2019 16:05
[2019-02-12] MEDS ORDERED: morphine INJ 10 MG/ML 1ML (SYR OR VIAL) ONE (16:34)
[2019-02-12] MEDS ORDERED: HYDROmorphone 2 MG/ML VIAL (DILAUDID) IV ONE (16:45)
[2019-02-12] MEDS ORDERED: morphine INJ 10 MG/ML 1ML (SYR OR VIAL) IVP ONE (16:45)
[2019-02-12] MEDS ORDERED: PROMETHAZINE INJ 25 MG/ML (PHENERGAN) AMP IVP ONE (16:45)
[2019-02-12] MEDS ORDERED: ONDANSETRON 4 MG/2 ML (SDV) Z0FRAN IVP PRN (16:45)
--- NOTE | 2019-02-12 17:00 | NUR ---
PATIENT BACK FROM SURGERY. REPORT RECEIVED FROM PHU VELEZ. WILL CONTINUE TO MONITOR THE PATIENT
[2019-02-12] MEDS: VANCOMYCIN INJECTION 1,750 MG in NS IV 500 ML 500 ML IV SCH (17:44)
--- NOTE | 2019-02-12 18:24 | OPERATIVE REPORT ---
DATE OF SERVICE: 02/12/2019 Preop Dx: right buttock abscess. Postop Dx: same(large [id number]) Procedure: Incision and drainage complex buttock abscess. Surgeon: Cristy Anesth: general LMA EBL: minimal Findings: large buttock abscess. no signs necrotizing soft tissue infection. Disp: patient tolerated well. INDICATIONS: The patient is a 43-year-old male who was admitted for right buttock pain and swelling. He developed redness and swelling approximately several days ago and was seen at [facility], underwent an incision and drainage. He states that the redness and pain worsened over time. He does have several risk factors including smoking as well as IV drug abuse. On examination, he initially had some redness and pain along the right buttock; however, no fluctuance to indicate any abscess at that time. He was also placed on vancomycin and his white count improved. Over time, there appeared to be coalescence of the redness and swelling and he did develop fluctuance along the medial aspect of the right buttock consistent with a formation of an abscess. DESCRIPTION OF PROCEDURE: The patient was brought to the operating room, laid supine on the table. After adequate IV pain and stated medications and general laryngeal mask airway intubation, the patient was placed in lithotomy position. The perineum was then prepped and draped in standard surgical fashion. A 0.5% Marcaine with epinephrine was then used to anesthetize the overlying skin to the abscess. A vertical skin incision was then made using a 15 blade. The abscess cavity was significantly large in size, approximately 12 x 10 cm in size. There was some necrotic debris, which was debrided. There were no signs or symptoms of any gas or any necrotizing fasciitis. Once this was evacuated, Good hemostasis was achieved with electrocautery and the abscess cavity was then irrigated and suctioned out. Two three-quarter inch Rodo drains were then placed coming out to the lateral and posterolateral aspect of the right buttock and sutured to the skin using 3-0 nylon sutures. The abscess cavity was then packed with a moist Kerlix covered by dry gauze followed by ABD pad and mesh underwear. The patient tolerated the procedure well. We will continue with IV antibiotics; however, he is MRSA positive and he will more than likely need Zyvox p.o. We will consult oncology social work for facilitating getting this medication for p.o. home use. He will also need to proceed with wound care with dressing changes with light packing on a b.i.d. basis. Job ID: [id number] DocumentID: [id number] Dictated Date: 02/12/2019 16:16:32 Sexual Abuse Counsellor Date: 02/12/2019 18:23:38 Dictated By: URMILA GOTTLIEB MD MTDD
[2019-02-12] MEDS: KETOROLAC 30 MG/ML VIAL IV PRN (22:52)
[2019-02-13] MEDS: VANCOMYCIN INJECTION 1,750 MG in NS IV 500 ML 500 ML IV SCH ×2 (01:06→08:31)
[2019-02-13 04:00] VITALS: BP 118/74
[2019-02-13] MEDS: HYDROcodone/APAP 5 MG/325 MG (LORTAB) TAB PO PRN ×2 (06:07→10:21)
[2019-02-13] MEDS: NS IV 1000 ML 1,000 ML IV SCH (06:07)
[2019-02-13 06:11] LABS: BASOPHILS % (AUTO) 0 % (0-10); EOSINOPHILS # (AUTO) 0.5 10^3/uL (0.0-0.3); EOSINOPHILS % (AUTO) 5 % (0-10); HEMATOCRIT 37 % (40-54); HEMOGLOBIN 11.9 G/DL (13.3-17.7); LYMPHOCYTES % (AUTO) 23 % (12-44); MEAN CORPUSCULAR HEMOGLOBIN 29 PG (25-34); MEAN CORPUSCULAR HGB CONC 33 G/DL (32-36); MEAN CORPUSCULAR VOLUME 90 FL (80-99); MEAN PLATELET VOLUME 9.1 FL (7.4-10.4); MONOCYTES # (AUTO) 1.1 X 10^3 (0.0-1.0); MONOCYTES % (AUTO) 12 % (0-12); NEUTROPHILS # (AUTO) 5.3 X 10^3 (1.8-7.8); NEUTROPHILS % (AUTO) 60 % (42-75); PLATELET COUNT 369 10^3/uL (130-400); WHITE BLOOD COUNT 8.9 10^3/uL (4.3-11.0)
[2019-02-13 06:32] LABS: BUN/CREATININE RATIO 11; CALCIUM 8.5 MG/DL (8.5-10.1); CARBON DIOXIDE 24 MMOL/L (21-32); CHLORIDE 108 MMOL/L (98-107); CREATININE SERUM 0.71 MG/DL (0.60-1.30); GFR ESTIMATED > 60; GLUCOSE 86 MG/DL (70-105); POTASSIUM 4.1 MMOL/L (3.6-5.0); SODIUM 141 MMOL/L (135-145)
[2019-02-13 08:00] VITALS: BP 108/56
[2019-02-13] MEDS: NICOTINE 14 MG (NICODERM) PATCH TD SCH (08:31)
[2019-02-13] MEDS: NICOTINE PATCH REMOVAL TP SCH (08:32)
[2019-02-13] MEDS: MUPIROCIN 2% OINT 22 GM (BACTROBAN) TUBE TOP SCH ×2 (08:33→13:10)
[2019-02-13] MEDS: KETOROLAC 30 MG/ML VIAL IV PRN (09:20)
[2019-02-13] MEDS ORDERED: LINE600T5 PO (10:35)
[2019-02-13 12:00] VITALS: BP 105/55
--- NOTE | 2019-02-13 12:27 | Discharge Summary ---
Discharge Summary Hospital Course Was the Problem List Reviewed?: Yes Problems/Dx: (1) Cellulitis and abscess of buttock Status: Acute Hospital Course Date of Admission: Feb 10, 2019 at 03:15 Admission Diagnosis : Sepsis due to abscess Family Physician/Provider: No,Local Physician Date of Discharge: 02/13/19 Discharge Diagnosis: Sepsis due to abscess Hospital Course: Castillo Lea is a 43-year-old male who was admitted with sepsis due to abscess of right buttock. He was started on vancomycin and Zosyn and was de-escalated to vancomycin monotherapy when cultures revealed MRSA. He underwent an irrigation and debridement with Dr. Muniz on 02/12. He recommended daily wet-to-dry dressing changes. These were set up to be performed as an outpatient. He was transitioned to oral Zyvox to complete a two-week course of antibiotics. Labs and Pending Lab Test: Laboratory Tests 02/13/19 05:50: White Blood Count 8.9, Red Blood Count 4.09L, Hemoglobin 11.9L, Hematocrit 37L, Mean Corpuscular Volume 90, Mean Corpuscular Hemoglobin 29, Mean Corpuscular Hemoglobin Concent 33, Red Cell Distribution Width 13.0, Platelet Count 369, Mean Platelet Volume 9.1, Neutrophils (%) (Auto) 60, Lymphocytes (%) (Auto) 23, Monocytes (%) (Auto) 12, Eosinophils (%) (Auto) 5, Basophils (%) (Auto) 0, Neutrophils # (Auto) 5.3, Lymphocytes # (Auto) 2.0, Monocytes # (Auto) 1.1H, Eosinophils # (Auto) 0.5H, Basophils # (Auto) 0.0, Sodium Level 141, Potassium Level 4.1, Chloride Level 108H, Carbon Dioxide Level 24, Anion Gap 9, Blood Urea Nitrogen 8, Creatinine 0.71, Estimat Glomerular Filtration Rate > 60, BUN/Creatinine Ratio 11, Glucose Level 86, Calcium Level 8.5 Microbiology 02/12/19 Gram Stain - Final, Resulted 02/12/19 Anaerobic Culture, Resulted Pending 02/12/19 Surgical Culture - Preliminary, Resulted Staphylococcus aureus 02/11/19 MRSA Screen - Final, Complete MRSA not isolated 02/10/19 Blood Culture - Preliminary, Resulted No growth 02/10/19 Urine Culture - Final, Complete NO GROWTH Home Meds Active Zyvox (Linezolid) 600 Mg Tablet 600 Mg PO BID 10 Days Assessment/Pt Instructions Take medications as prescribed. Follow up for dressing changes daily. Return with worsening pain, fevers, or if you feel like you're getting worse. Discharge Planning: <30 minutes discharge planning Discharge Instructions Discharge Diet: No Restrictions Activity as Tolerated: Yes Consultations General surgery Discharge Physical Examination Vital Signs Vital Signs Date Time Temp Pulse Resp B/P (MAP) Pulse Ox O2 Delivery O2 Flow Rate FiO2 02/13/19 08:00 97 Room Air 02/13/19 08:00 36.3 69 16 108/56 (73) 02/12/19 20:00 4.00 General Appearance: No Apparent Distress, WD/WN HEENT: PERRL/EOMI, Pharynx Normal Respiratory: Lungs Clear, Normal Breath Sounds, No Respiratory Distress Cardiovascular: Regular Rate, Rhythm, No Edema, No Murmur Gastrointestinal: Normal Bowel Sounds, Non Tender, Soft Extremity: Normal Inspection, Non Tender, No Pedal Edema Skin: Other (Right buttock wound with dressing in place) Neurologic/Psychiatric: Alert, Oriented x3, No Motor/Sensory Deficits, Normal Mood/Affect Allergies: Coded Allergies: No Known Drug Allergies (Unverified , 02/08/19) Discharge Summary Date of Admission Feb 10, 2019 at 03:15 Date of Discharge Discharge Date: Feb 13, 2019 Discharge Time: 12:26 Admission Diagnosis Sepsis from right Buttock Abscess and Cellulitis Consults/Procedures Consulations General surgery Procedures Irrigation and debridement Discharge Diagnosis Sepsis due to cellulitis and abscess of the right buttock (1) Cellulitis and abscess of buttock Status: Acute Clinical Quality Measures DVT/VTE Risk/Contraindication: Risk Factor Score Per Nursin RFS Level Per Nursing on Admit: 4+=Very High TRUNG KINGSTON MD Feb 13, 2019 12:27
[2019-02-13] MEDS ORDERED: FLU QUADRIvalent (5+ YOA) 2019-2020 (AFLURIA) 0.5 ML IM ONE (13:11)
--- NOTE | 2019-02-13 13:11 | NUR ---
PATIENT IS DISCHARGED, JUST WAITING ON A RIDE TO PICK HIM UP. ALL SUPPLIES/BELONGINGS ARE PACKED READY TO GO.
--- NOTE | 2019-02-13 13:35 | Anesthesia-General Post-Op ---
General Patient Condition Mental Status/LOC: Same as Preop Cardiovascular: Satisfactory Nausea/Vomiting: Absent Respiratory: Satisfactory Pain: Controlled Complications: Absent Post Op Complications Complications None Follow Up Care/Instructions Patient Instructions None needed. Anesthesia/Patient Condition Patient Condition Patient is doing well, no complaints, stable vital signs, no apparent adverse anesthesia problems. He is ready for discharge to home. TEJAL ZUNIGA DO Feb 13, 2019 13:35
[2019-02-13 14:21] VITALS: BP 105/55
--- NOTE | 2019-02-13 15:37 | NUR ---
CM/SS: Visited with pt at to his discharge plan Plan: Pt to discharge to home with outpatient wound care to be done in day surgery. Summary: Pt reports he will be returning to his home in [place]. Discussed with pt the ability for him to pay for his medication at pharmacy. Pt is aware that the medications will be ran through the additional savings program and the total cost is $20.33. 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 Pt verbalizes understanding. Pt is encouraged to take his medication as prescribed and attend any follow up appointments. Pt does verbalize understanding.
[2019-02-13] MEDS ORDERED: TROUGH ORDER-PHARMACY XX NR (16:00)
--- NOTE | 2019-02-16 10:59 | Physician Query Clarification ---
PQ-Further Specificity Admission/Discharge Admission Date: Feb 10, 2019 at 03:15 Discharge Date: Feb 13, 2019 at 14:23 The medical record reflects the following clinical scenario: History/Risk Factors: Rt buttock abscess and sepsis Clinical Findings: large buttock abscess, no signs necrotizing soft tissue infection Treatment: Incision and drainage complex buttock abscess Question: Can you further specify the depth of the incision and drainage per the clinical indicators above? Please document a response in the Progress Notes or Discharge Summary. 1. Skin 2. Subcutaneous tissue 3. Fascia 4. Other, with explanation of the clinical findings. 5. Clinically undetermined, no explanation for the clinical findings. PHYSICIAN RESPONSE Can you specify per above: Other, explanation/clinical finding Explanation/Clinical Findings #3(fascia) Please remember a lack of response to the above will prompt a phone page by CDI/Coding staff. In responding to this query, please exercise your independent professional judgment. The purpose of this communication is to more accurately reflect the complexity of your patients condition. The fact that a question is asked does not imply that any particular answer is desired or expected. Thank you for your timely response to this clarification. Requestors name: Nabila THIS PHYSICIAN QUERY FORM IS A PERMANENT PART OF THE MEDICAL RECORD CIARAN BECERRA Feb 16, 2019 10:59 URMILA GOTTLIEB MD Feb 16, 2019 11:10
== END 2019-02-13 14:23 | disposition home or self-care (01) | DRG 854 ==
LOC: EDUNIT# 23:59 → ER 02-10 00:01 → 4TH 02-10 03:15
PROVIDERS: ADMIT Family Medicine; ATTEND Family Medicine
PROC: 0J990ZZ Drainage of Buttock Subcutaneous Tissue and Fascia, Open Approach (ICD-10-PCS; principal; 2019-02-12 15:06)
DX: A41.9 Sepsis, unspecified organism (principal); L02.31 Cutaneous abscess of buttock; L03.317 Cellulitis of buttock; F17.210 Nicotine dependence, cigarettes, uncomplicated; K21.9 Gastro-esophageal reflux disease without esophagitis; Z23 Encounter for immunization
CPT/HCPCS: 36415; 74177; 80048; 80053; 80202; 80306; 80320; 81000; 83605; 85007; 85025; 85027; 85610; 85730; 87040; 87070; 87075; 87077; 87081; 87088; 87186; 87205; 93041; 96361; 96365; 96367; 96375

== ENCOUNTER 2019-02-15 09:12 | Outpatient (RCR) | payer SELFPAY ==
[2019-02-14 11:00] VITALS: BP 111/68
[~2019-02-15] VITALS: Ht 183 cm; Wt 103.4 kg
[~2019-02-15 09:12] MED LIST changes: +IBUP-2473 PO; +LINE600T12 PO; +NAPR220T66 PO
[2019-02-15 09:33] VITALS: BP 130/92
== END 2019-05-15 | disposition home or self-care (01) ==
LOC: SDC 09:12
PROVIDERS: ATTEND Internal Medicine
DX: Z48.01 Encounter for change or removal of surgical wound dressing (principal)
CPT/HCPCS: 99212

== ENCOUNTER → 2019-02-21 | Outpatient (CLI) | payer SELFPAY | LOC: WOUNDCARE 09:31 | PROVIDERS: ATTEND Orthopaedic Surgery Hand Surgery | DX: S31.819A Unspecified open wound of right buttock, initial encounter (principal); L02.31 Cutaneous abscess of buttock; T65.224D Toxic effect of tobacco cigarettes, undetermined, subsequent encounter; B95.62 Methicillin resistant Staphylococcus aureus infection as the cause of diseases classified elsewhere | CPT/HCPCS: 11042 ==

== ENCOUNTER 2020-02-09 22:21 | Emergency (ER) | payer SELFPAY ==
[~2020-02-09] VITALS: Ht 180.3 cm; Wt 106.5 kg
[2020-02-09 22:25] VITALS: BP 117/54
[2020-02-09] MEDS ORDERED: cefTRIAXone 1,000 MG/2.86 ml vial (IM ONLY) IM STA (22:40)
[2020-02-09] MEDS ORDERED: TRIM/SULFAMETH 160/800 (SEPTRA DS) TAB PO STA (22:40)
[2020-02-09] MEDS ORDERED: LIDOCAINE 1% INJ 20 ML 20 ML VIAL INJ STA (22:40)
[2020-02-09] MEDS ORDERED: LIDOCAINE 1% INJ 20 ML 20 ML VIAL INJ ONE (22:45)
--- NOTE | 2020-02-09 22:47 | ED Integumentary General ---
General Chief Complaint: Skin/Wound Problems Stated Complaint: RIGHT HIP PAIN Nursing Triage Note: Patient states that he has a hard red bump that is warm to the touch on the right buttock. Patient states this started about 2 days ago. He denies running any fevers at home. Patient had this happen previously and he was hospitalized for sepsis/staph infection. Source: patient History of Present Illness Date Seen by Provider: Feb 09, 2020 Time Seen by Provider: 22:25 Initial Comments 44-year-old male presenting with complaints of pain and swelling to the right buttock. He reports redness and tenderness to this area. It feels similar to last year at this time when he had an abscess. At that time he was having fevers. He denies any fever or chills currently. He did develop sepsis and had MRSA when this happened last February. He was hoping to try and avoid that by coming in early this year. He states the pain is been there for about 2 days. He has had increased pain with certain positions and sitting putting pressure on his butt cheek. Unknown of the cause of his red painful spot on butt cheek. No drainage from the area. Allergies and Home Medications Allergies Coded Allergies: No Known Drug Allergies (Unverified , 02/08/19) Home Medications Sulfamethoxazole/Trimethoprim 1 Each Tablet, 1 EACH PO BID Prescribed by: HARLEEN ROY on 02/09/20 2628 Patient Home Medication List Home Medication List Reviewed: Yes Review of Systems Review of Systems Constitutional: No chills, No fever EENTM: no symptoms reported Respiratory: no symptoms reported Cardiovascular: no symptoms reported Gastrointestinal: no symptoms reported Genitourinary: no symptoms reported Musculoskeletal: back pain (chronic) Skin: see HPI, change in color (red painful area to right butt cheek) Past Oufpgfu-Rofnkz-Vagkoc Hx Past Med/Social Hx: Reviewed Nursing Past Med/Soc Hx Patient Social History Alcohol Use: Denies Use Recreational Drug Use: No Smoking Status: Current Everyday Smoker Type Used: Cigarettes 2nd Hand Smoke Exposure: No Recent Foreign Travel: No Contact w/Someone Who Travel: No Recent Infectious Disease Expo: No Recent Hopitalizations: No Physical Abuse: No Sexual Abuse: No Mistreated: No Fear: No Immunizations Up To Date Tetanus Booster (TDap): Unknown Date of Influenza Vaccine: Feb 13, 2019 Seasonal Allergies Seasonal Allergies: No Past Medical History Surgeries: Yes (RIGHT ANKLE; I&D OF RIGHT BUTTOCK ABSCESS 02/08/19) Orthopedic Respiratory: No Cardiac: No Neurological: No Genitourinary: No Gastrointestinal: No Musculoskeletal: Yes (RIGHT ANKLE SURGERY) Fractures Endocrine: No HEENT: No Cancer: No Psychosocial: No Integumentary: Yes (ABSCESS RIGHT BUTTOCK I&D 02/08/19) Recent Skin Changes Blood Disorders: No Family Medical History Diabetes, Hypertension Physical Exam Vital Signs Vital Signs - First Documented 02/09/20 22:25 Temp 36.5 Pulse 101 Resp 18 B/P (MAP) 117/54 (75) Pulse Ox 100 O2 Delivery Room Air Capillary Refill : Less Than 3 Seconds General Appearance: WD/WN, no apparent distress HEENT: PERRL/EOMI Cardiovascular: normal peripheral pulses, regular rate, rhythm Respiratory: chest non-tender, lungs clear, normal breath sounds Skin: warm/dry Skin Problem Location: other (right butt cheek) Skin Problem Character: abscess, erythema, swelling, tenderness, warm, other (induration with fluctuance and central pointing area) Procedures/Interventions I&D : Site: Right buttock Blade Size: 15 I & D Procedure: sterile dressing applied Progress After obtaining verbal informed consent the 5.7 cm diameter indurated area on right buttock was cleaned with chlorhexidine scrub swabs. Then 2 mL of 1% plain lidocaine infiltrated subcutaneously. Then a 15 blade scalpel was used to make a 1.5 cm incision at the area of pointing on the abscess. A moderate amount of purulent material was draining from the wound and some blood from the incision. there was no cavity felt the present enough to be able to place any packing. The wound was dressed with sterile gauze and antibiotic ointment. Started on Roceph in 1 g IM as well as Bactrim DS by mouth. Discharge on Bactrim DS to take by mouth based off of wound culture from February 2019. Progress/Results/Core Measures Results/Orders My Orders Orders - HARLEEN ROY MD Lidocaine 1% Inj 20 Ml (Xylocaine 1% Inj (02/09/20 22:40) Wound Culture (02/09/20 22:40) Wound Dressing-Ed (02/09/20 22:40) Ceftriaxone For Im Use (Rocephin For Im (02/09/20 22:40) Sulfamethoxazole/Trimet Ds Tab (Bactrim (02/09/20 22:40) Lidocaine 1% Inj 20 Ml (Xylocaine 1% Inj (02/09/20 22:45) Medications Given in ED Current Medications Medications Dose Ordered Sig/Luciano Route Start Time Stop Time Status Last Admin Dose Admin Lidocaine HCl 2.1 ml ONCE ONCE INJ 02/09/20 22:45 02/09/20 22:46 DC 02/09/20 22:55 2.1 ML Vital Signs/I&O 02/09/20 22:25 Temp 36.5 Pulse 101 Resp 18 B/P (MAP) 117/54 (75) Pulse Ox 100 O2 Delivery Room Air Blood Pressure Mean: 75 Progress Progress Note : Progress Note verbally consented for Incision and drainage of the abscess. Start on Rocephin IM here in addition to Bactrim DS for MRSA based on prior culture Feb 2019. Departure Impression Primary Impression: Cellulitis and abscess of buttock Additional Impression: History of MRSA infection Disposition: HOME, SELF-CARE Condition: Stable Departure-Patient Inst. Decision time for Depature: 23:12 Referrals: NO,LOCAL PHYSICIAN (PCP) Primary Care Physician [facility] Patient Instructions: Cellulitis (Skin Infection), Adult ED, Abscess Incision and Drainage ED, MRSA (DC) Add. Discharge Instructions: Keep wound clean and use soap and water. May apply heat to area 15-20 minutes every few hours while awake to help the area drain and increase blood flow to the area so it heals faster and gets more antibiotic to the area. Check with clinic at [facility] for continued concerns or if not improving. All discharge instructions reviewed with patient and/or family. Voiced understanding. Scripts Sulfamethoxazole/Trimethoprim (Bactrim Ds Tablet) 1 Each Tablet 1 EACH PO BID for MRSA Abscess/cellulitis for 10 Days, #20 TAB 0 Refills Prov: HARLEEN ROY MD 02/09/20 HARLEEN ROY MD Feb 09, 2020 22:47
[2020-02-09] MEDS ORDERED: SULF1TAB35 PO (23:12)
== END 2020-02-09 23:14 | disposition home or self-care (01) ==
LOC: EDUNIT# 22:21 → ER FS 22:25
DX: L03.317 Cellulitis of buttock (principal); F17.210 Nicotine dependence, cigarettes, uncomplicated; Z82.49 Family history of ischemic heart disease and other diseases of the circulatory system; Z83.3 Family history of diabetes mellitus
CPT/HCPCS: 87070; 87077; 87186; 87205; 99284

== ENCOUNTER 2020-06-15 11:43 | Emergency (ER) | payer SELFPAY ==
[~2020-06-15] VITALS: Ht 180.3 cm; Wt 104.0 kg
[2020-06-15] MEDS ORDERED: NS IV 1000 ML 1,000 ML IV STA (12:03)
[2020-06-15] MEDS ORDERED: KETOROLAC 30 MG/ML VIAL IVP STA (12:03)
[2020-06-15] MEDS ORDERED: ONDANSETRON 4 MG/2 ML (SDV) Z0FRAN IVP STA (12:03)
[2020-06-15 12:26] LABS: HEMATOCRIT 48 % (40-54); HEMOGLOBIN 15.8 G/DL (13.3-17.7); MEAN CORPUSCULAR HEMOGLOBIN 30 PG (25-34); MEAN CORPUSCULAR HGB CONC 33 G/DL (32-36); MEAN CORPUSCULAR VOLUME 90 FL (80-99); PLATELET COUNT 333 10^3/uL (130-400); WHITE BLOOD COUNT 10.1 10^3/uL (4.3-11.0)
[2020-06-15 12:27] LABS: BASOPHILS % (AUTO) 0 % (0-10); EOSINOPHILS # (AUTO) 0.2 10^3/uL (0.0-0.3); EOSINOPHILS % (AUTO) 2 % (0-10); LYMPHOCYTES # (AUTO) 1.1 X 10^3 (1.0-4.0); LYMPHOCYTES % (AUTO) 11 % (12-44); MEAN PLATELET VOLUME 8.9 FL (7.4-10.4); MONOCYTES # (AUTO) 0.6 X 10^3 (0.0-1.0); MONOCYTES % (AUTO) 6 % (0-12); NEUTROPHILS # (AUTO) 8.1 X 10^3 (1.8-7.8); NEUTROPHILS % (AUTO) 81 % (42-75)
--- NOTE | 2020-06-15 12:40 | Diagnostic Imaging Report ---
PROCEDURE: CT abdomen and pelvis without contrast. TECHNIQUE: Multiple contiguous axial images were obtained through the abdomen and pelvis without the use of intravenous contrast. Auto Exposure Controls were utilized during the CT exam to meet ALARA standards for radiation dose reduction. INDICATION: Bilateral flank pain. Hematuria. COMPARISON: 02/10/2019. FINDINGS: The heart is unremarkable. The lung bases are clear. Punctate nonobstructing calculi are seen in the inferior poles of the kidneys. No obstructing calculi or hydronephrosis. The urinary bladder is nondistended. No bladder calculi are present. The liver, spleen, pancreas, and adrenal glands have a normal appearance. There is no pathologically enlarged mesenteric or retroperitoneal adenopathy. The bowel loops are nondilated. The appendix is visualized in the right lower quadrant and a normal appearance. There is no free fluid or free air. No acute osseous abnormalities. There is no free air, loculated collection, or adenopathy in the pelvis. IMPRESSION: 1. Punctate nonobstructing calculi in the inferior poles of the kidneys. No obstructing calculi or hydronephrosis. Dictated by: Dictated on workstation # [id number]
[2020-06-15 12:42] LABS: ALANINE AMINOTRANSFERASE 15 U/L (0-55); ALBUMIN 4.3 GM/DL (3.2-4.5); ALKALINE PHOSPHATASE 84 U/L (40-136); BILIRUBIN,TOTAL 0.3 MG/DL (0.1-1.0); BUN/CREATININE RATIO 15; CALCIUM 9.4 MG/DL (8.5-10.1); CARBON DIOXIDE 28 MMOL/L (21-32); CHLORIDE 104 MMOL/L (98-107); CREATININE SERUM 0.92 MG/DL (0.60-1.30); GFR ESTIMATED > 60; GLUCOSE 102 MG/DL (70-105); LIPASE 19 U/L (8-78); POTASSIUM 4.6 MMOL/L (3.6-5.0); SODIUM 140 MMOL/L (135-145); TOTAL PROTEIN 7.2 GM/DL (6.4-8.2)
--- NOTE | 2020-06-15 13:41 | ED General ---
General Chief Complaint: - Urinary Stated Complaint: BLOODY URINE | BACK PAIN | NAUSEA | DIARRHEA Nursing Triage Note: Patient presents to ED ambulatory with c/o kidney pain for 3 mo with blood in urine. Pt reports drinking water bloats him. Pt states past evaluations in [place] at their Urgent Care and ER have been undeterminate. Nursing Sepsis Screen: No Definite Risk Source of Information: Patient History of Present Illness Date Seen by Provider: June 15, 2020 Time Seen by Provider: 12:01 Initial Comments 44-year-old male presenting with complaints of over 3 months of intermittent abdominal and back pain. He states he at times will see blood in his urine. Sometimes his urine will be very dark. Occasionally when he drinks water and fluids his urine will be very light-colored and he will have a bloating type sensation in his lower abdomen. He states he does a lot of things outside and does forget to drink especially when he is working. By the end of the day he will be thirsty and then try to drink a lot of fluid. He states he does not have insurance and so he has not seen a primary care provider or followed up about this. He has reportedly went to [facility] and been evaluated there. He does have a history of methamphetamine abuse but states it has been a while since he used any. Associated Systoms: No Chest Pain, No Cough, No Diaphoresis, No Fever/Chills, No Headaches, No Loss of Appetite, No Malaise; Nausea/Vomiting (Intermittent nausea but no vomiting); No Rash, No Seizure, No Shortness of Air, No Syncope, No Weakness Allergies and Home Medications Allergies Coded Allergies: No Known Drug Allergies (Unverified , 02/08/19) Home Medications Sulfamethoxazole/Trimethoprim 1 Each Tablet, 1 EACH PO BID Prescribed by: HARLEEN ROY on 02/09/20 7307 Patient Home Medication List Home Medication List Reviewed: Yes Review of Systems Review of Systems Constitutional: No chills, No fever EENTM: no symptoms reported Respiratory: no symptoms reported Cardiovascular: no symptoms reported Gastrointestinal: see HPI, diarrhea (Today), nausea; No vomiting Genitourinary: see HPI, decreased output (Sometimes); No discharge; dysuria (At times), hematuria (Occasionally) Musculoskeletal: no symptoms reported, back pain (Back and flank pain intermittently) Skin: No rash Psychiatric/Neurological: Denies Headache Past Psexyyo-Qjlmcs-Kpmtdi Hx Past Med/Social Hx: Reviewed Nursing Past Med/Soc Hx Patient Social History Alcohol Use: Past History Drug of Choice: SMOKES METH Smoking Status: Current Everyday Smoker Type Used: Cigarettes 2nd Hand Smoke Exposure: No Recent Infectious Disease Expo: No Recent Hopitalizations: No Immunizations Up To Date Tetanus Booster (TDap): Unknown Date of Influenza Vaccine: Feb 13, 2019 Seasonal Allergies Seasonal Allergies: No Past Medical History Surgeries: Yes (RIGHT ANKLE; I&D OF RIGHT BUTTOCK ABSCESS 02/08/19) Orthopedic Respiratory: No Cardiac: No Neurological: No Genitourinary: No Gastrointestinal: No Musculoskeletal: Yes (RIGHT ANKLE SURGERY) Fractures Endocrine: No HEENT: No Cancer: No Psychosocial: No Integumentary: No (ABSCESS RIGHT BUTTOCK I&D 02/08/19) Recent Skin Changes Blood Disorders: No Family Medical History Diabetes, Hypertension Physical Exam Vital Signs Vital Signs - First Documented 06/15/20 11:55 Temp 36.4 Pulse 89 Resp 16 B/P (MAP) 117/77 (90) Pulse Ox 100 O2 Delivery Room Air Capillary Refill : Less Than 3 Seconds Height, Weight, BMI Height: '" Weight: lbs. oz. kg; 31.00 BMI Method: General Appearance: No Apparent Distress, WD/WN HEENT: PERRL/EOMI; No Moist Mucous Membranes (Slightly dry mucous membranes) Neck: Full Range of Motion, Normal Inspection, Non Tender, Supple Respiratory: Chest Non Tender, Lungs Clear, Normal Breath Sounds Cardiovascular: Regular Rate, Rhythm, No Murmur, Normal Peripheral Pulses Gastrointestinal: Normal Bowel Sounds, No Pulsatile Mass, Non Tender, Soft Rectal: Deferred Back: Normal Inspection, No CVA Tenderness, No Vertebral Tenderness Extremity: Normal Capillary Refill, Normal Inspection, No Pedal Edema Neurologic/Psychiatric: Alert, Oriented x3, No Motor/Sensory Deficits, Normal 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, 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 Norm as Tested Skin: Normal Color, Warm/Dry; No Rash Progress/Results/Core Measures Suspected Sepsis Recent Fever Within 48 Hours: No Infection Criteria Present: None New/Unexplained Altered Menta: No Sepsis Screen: No Definite Risk SIRS Temperature: Pulse: 89 Respiratory Rate: 16 Laboratory Tests 06/15/20 12:15: White Blood Count 10.1 Blood Pressure 117 /77 Mean: 90 Laboratory Tests 06/15/20 12:15: Creatinine 0.92, Platelet Count 333, Total Bilirubin 0.3 Results/Orders Lab Results Laboratory Tests Test 06/15/20 12:15 06/15/20 13:40 Range/Units White Blood Count 10.1 4.3-11.0 10^3/uL Red Blood Count 5.31 4.35-5.85 10^6/uL Hemoglobin 15.8 13.3-17.7 G/DL Hematocrit 48 40-54 % Mean Corpuscular Volume 90 80-99 FL Mean Corpuscular Hemoglobin 30 25-34 PG Mean Corpuscular Hemoglobin Concent 33 32-36 G/DL Red Cell Distribution Width 12.9 10.0-14.5 % Platelet Count 333 130-400 10^3/uL Mean Platelet Volume 8.9 7.4-10.4 FL Immature Granulocyte % (Auto) 0 % Neutrophils (%) (Auto) 81 H 42-75 % Lymphocytes (%) (Auto) 11 L 12-44 % Monocytes (%) (Auto) 6 0-12 % Eosinophils (%) (Auto) 2 0-10 % Basophils (%) (Auto) 0 0-10 % Neutrophils # (Auto) 8.1 H 1.8-7.8 X 10^3 Lymphocytes # (Auto) 1.1 1.0-4.0 X 10^3 Monocytes # (Auto) 0.6 0.0-1.0 X 10^3 Eosinophils # (Auto) 0.2 0.0-0.3 10^3/uL Basophils # (Auto) 0.0 0.0-0.1 10^3/uL Immature Granulocyte # (Auto) 0.0 0.0-0.1 10^3/uL Sodium Level 140 135-145 MMOL/L Potassium Level 4.6 3.6-5.0 MMOL/L Chloride Level 104 98-107 MMOL/L Carbon Dioxide Level 28 21-32 MMOL/L Anion Gap 8 5-14 MMOL/L Blood Urea Nitrogen 14 7-18 MG/DL Creatinine 0.92 0.60-1.30 MG/DL Estimat Glomerular Filtration Rate > 60 BUN/Creatinine Ratio 15 Glucose Level 102 70-105 MG/DL Calcium Level 9.4 8.5-10.1 MG/DL Corrected Calcium 8.5-10.1 MG/DL Total Bilirubin 0.3 0.1-1.0 MG/DL Aspartate Amino Transf (AST/SGOT) 14 5-34 U/L Alanine Aminotransferase (ALT/SGPT) 15 0-55 U/L Alkaline Phosphatase 84 40-136 U/L Total Protein 7.2 6.4-8.2 GM/DL Albumin 4.3 3.2-4.5 GM/DL Lipase 19 8-78 U/L Urine Color YELLOW Urine Clarity CLEAR Urine pH 6.5 5-9 Urine Specific [place] 1.025 H 1.016-1.022 Urine Protein NEGATIVE NEGATIVE Urine Glucose (UA) NEGATIVE NEGATIVE Urine Ketones NEGATIVE NEGATIVE Urine Nitrite NEGATIVE NEGATIVE Urine Bilirubin NEGATIVE NEGATIVE Urine Urobilinogen 1.0 < = 1.0 MG/DL Urine Leukocyte Esterase NEGATIVE NEGATIVE Urine RBC (Auto) NEGATIVE NEGATIVE Urine RBC 5-10 H /HPF Urine WBC RARE /HPF Urine Squamous Epithelial Cells NONE /HPF Urine Crystals NONE /LPF Urine Bacteria TRACE /HPF Urine Casts NONE /LPF Urine Mucus LARGE H /LPF Urine Culture Indicated NO Urine Opiates Screen NEGATIVE NEGATIVE Urine Oxycodone Screen NEGATIVE NEGATIVE Urine Methadone Screen NEGATIVE NEGATIVE Urine Propoxyphene Screen NEGATIVE NEGATIVE Urine Barbiturates Screen NEGATIVE NEGATIVE Ur Tricyclic Antidepressants Screen NEGATIVE NEGATIVE Urine Phencyclidine Screen NEGATIVE NEGATIVE Urine Amphetamines Screen POSITIVE H NEGATIVE Urine Methamphetamines Screen POSITIVE H NEGATIVE Urine Benzodiazepines Screen NEGATIVE NEGATIVE Urine Cocaine Screen NEGATIVE NEGATIVE Urine Cannabinoids Screen NEGATIVE NEGATIVE My Orders Orders - HARLEEN ROY MD Comprehensive Metabolic Panel (06/15/20 12:03) Lipase (06/15/20 12:03) Ua Culture If Indicated (06/15/20 12:03) Ed Iv/Invasive Line Start (06/15/20 12:03) Cbc With Automated Diff (06/15/20 12:03) Ct Abdomen/Pelvis Wo (06/15/20 12:03) Drug Screen Stat (Urine) (06/15/20 12:03) Ns Iv 1000 Ml (Sodium Chloride 0.9%) (06/15/20 12:03) Ketorolac Injection (Toradol Injection) (06/15/20 12:03) Ondansetron Injection (Zofran Injectio (06/15/20 12:03) Vital Signs/I&O 06/15/20 06/15/20 11:55 14:56 Temp 36.4 36.4 Pulse 89 70 Resp 16 16 B/P (MAP) 117/77 (90) 109/69 (90) Pulse Ox 100 99 O2 Delivery Room Air Room Air Capillary Refill : Less Than 3 Seconds Blood Pressure Mean: 90 Progress Note #1: Progress Note Since he has complaints of nausea hematuria and intermittent back pain will obtain labs including urine and order a CT scan without contrast to look for kidney stones or mass. Give IV fluids for hydration and a dose of Toradol to help with pain. Differential diagnosis would include kidney stones and renal colic, diverticulitis, colitis, renal cell cancer, bladder cancer, pyelonephritis, prostatitis Progress Note #2: Progress Note Labs did not show any acute significant abnormality. His urine does not available until after getting a liter of fluid. The CT scan showed some small stones in the kidneys. He had no signs of obstruction or ureteral stones. His bowels appeared normal without acute significant abnormality. When the urine was obtained it was still slightly concentrated with a specific gravity of 1.025 and he had a trace amount of blood. He did have methamphetamines in his urine drug screen which could also contribute to dehydration and abdominal pain. Counseled patient on these results and findings. Advised that there was no sign of infection for needing antibiotic. With the kidney stones present in his kidneys when he gets dehydrated he could be forming more stones and may be passing small stones when he has episodes of hematuria and abdominal pain. Also having the methamphetamines on board can cause abdominal pain and dehydration itself. Counseled to push fluids and rest. Follow-up through the [facility] clinic and get established for care. If he does need further testing for the hematuria and abdominal symptoms then they could help set him up for a colonoscopy and urology referral if needed. Diagnostic Imaging Diagonstic Imaging: CT Plain Films/CT/US/NM/MRI: abdomen, pelvis Comments [facility] [place], [place] NAME: CASSIE RAMIREZ [facility] REC#: [id number] PT STATUS: REG ER : 1975 PHYSICIAN: HARLEEN ROY MD ADMIT DATE: 06/15/20/ER FS Signed Date of Exam:06/15/20 CT ABDOMEN/PELVIS WO PROCEDURE: CT abdomen and pelvis without contrast. TECHNIQUE: Multiple contiguous axial images were obtained through the abdomen and pelvis without the use of intravenous contrast. Auto Exposure Controls were utilized during the CT exam to meet ALARA standards for radiation dose reduction. INDICATION: Bilateral flank pain. Hematuria. COMPARISON: 02/10/2019. FINDINGS: The heart is unremarkable. The lung bases are clear. Punctate nonobstructing calculi are seen in the inferior poles of the kidneys. No obstructing calculi or hydronephrosis. The urinary bladder is nondistended. No bladder calculi are present. The liver, spleen, pancreas, and adrenal glands have a normal appearance. There is no pathologically enlarged mesenteric or retroperitoneal adenopathy. The bowel loops are nondilated. The appendix is visualized in the right lower quadrant and a normal appearance. There is no free fluid or free air. No acute osseous abnormalities. There is no free air, loculated collection, or adenopathy in the pelvis. IMPRESSION: 1. Punctate nonobstructing calculi in the inferior poles of the kidneys. No obstructing calculi or hydronephrosis. Dictated by: Dictated on workstation # [id number] Dict: 06/15/20 1234 Trans: 06/15/20 1246 CV [id number] Interpreted by: JAMIE SHARP DO Electronically signed by: JAMIE SHARP DO 06/15/20 1246 Departure Impression Primary Impression: Kidney stones Additional Impressions: Dehydration Methamphetamine use Hematuria Qualified Codes: R31.9 - Hematuria, unspecified Disposition: 01 HOME, SELF-CARE Condition: Stable Departure-Patient Inst. Decision time for Depature: 14:52 Referrals: NO,LOCAL PHYSICIAN (PCP) Primary Care Physician [facility] Patient Instructions: Dehydration, Adult ED, Flank Pain (DC), Kidney Stone Diet, Kidney Stone, Adult ED, Methamphetamine, Renal Colic (DC) Add. Discharge Instructions: Call [phone] to reach the [facility] and they can help get you a provider and established with care for follow up. They can help you get further testing to look at reasons for your pain and blood in urine beyond the kidney stones. If you need set up for a colonoscopy to look at the lining of colon or see Urology for testing about blood and stones in urine, they can help set that up. Drink plenty of water and stay hydrated to try and help keep your urine as clear and light as possible. All discharge instructions reviewed with patient and/or family. Voiced understanding. HARLEEN ROY MD June 15, 2020 13:41
[2020-06-15 13:48] LABS: BACTERIA,URINE TRACE /HPF; BILIRUBIN,URINE NEGATIVE (NEGATIVE); CLARITY,URINE CLEAR; COLOR,URINE YELLOW; GLUCOSE, URINE (UA) NEGATIVE (NEGATIVE); KETONES,URINE NEGATIVE (NEGATIVE); LEUKOCYTE ESTERASE ,URINE NEGATIVE (NEGATIVE); NITRITE,URINE NEGATIVE (NEGATIVE); PH,URINE 6.5 (5-9); PROTEIN,URINE NEGATIVE (NEGATIVE); WBC,URINE RARE /HPF
[2020-06-15 13:55] LABS: AMPHETAMINE SCREEN, URINE POSITIVE (NEGATIVE); BARBITURATE SCREEN URINE NEGATIVE (NEGATIVE); BENZODIAZEPINES SCREEN URINE NEGATIVE (NEGATIVE); CANNABINOID SCREEN, URINE NEGATIVE (NEGATIVE); COCAINE SCREEN URINE NEGATIVE (NEGATIVE); METHADONE STAT NEGATIVE (NEGATIVE); METHAMPHETAMINE SCREEN URINE S POSITIVE (NEGATIVE); OPIATE SCREEN URINE NEGATIVE (NEGATIVE); OXYCODONE STAT NEGATIVE (NEGATIVE); PROPOXYPHENE STAT NEGATIVE (NEGATIVE); TRICYCLIC ANTIDEPRESSANTS SCRE NEGATIVE (NEGATIVE)
[2020-06-15 14:56] VITALS: BP 109/69
== END 2020-06-15 14:56 | disposition home or self-care (01) ==
LOC: EDUNIT# 11:43 → ER FS 11:45
DX: N20.0 Calculus of kidney (principal); E86.0 Dehydration; F15.90 Other stimulant use, unspecified, uncomplicated; R31.9 Hematuria, unspecified; F17.210 Nicotine dependence, cigarettes, uncomplicated
CPT/HCPCS: 36415; 74176; 80053; 80306; 81000; 83690; 85025

== ENCOUNTER 2020-08-03 11:36 | Emergency (ER) | payer SELFPAY ==
[~2020-08-03] VITALS: Ht 180.3 cm; Wt 105.3 kg
[2020-08-03 11:49] VITALS: BP 135/76
[2020-08-03] MEDS ORDERED: SULF1TAB35 PO (12:01)
[2020-08-03] MEDS ORDERED: MUPI15CR11 TP (12:01)
--- NOTE | 2020-08-03 12:01 | ED Integumentary General ---
"General Chief Complaint: Dizziness/Syncope Stated Complaint: DIZZY | SWOLLEN CHEST Source: patient History of Present Illness Date Seen by Provider: Aug 03, 2020 Time Seen by Provider: 11:58 Initial Comments 45-year-old male who presents with redness and swelling to his right anterior chest wall/right nipple area. Began 2 days ago and is currently significantly worse. Also with some scattered red lesions on his face. Patient with history of MRSA and sepsis about 6 months ago and was hospitalized. Allergies and Home Medications Allergies Coded Allergies: No Known Drug Allergies (Unverified , 02/08/19) Home Medications Mupirocin Calcium 15 Gm Cream..g., 15 GM TP TID Prescribed by: GALA PEÑA on 08/03/20 1201 Sulfamethoxazole/Trimethoprim 1 Each Tablet, 1 EACH PO BID Prescribed by: HARLEEN ROY on 02/09/20 2312 Sulfamethoxazole/Trimethoprim 1 Each Tablet, 1 EACH PO BID Prescribed by: GALA PEÑA on 08/03/20 1201 Patient Home Medication List Home Medication List Reviewed: Yes Review of Systems Review of Systems Constitutional: No chills; fever (subjective); No malaise, No weakness Respiratory: No cough, No short of breath Cardiovascular: chest pain (discomfort R chest- area of redness); No edema, No palpitations Gastrointestinal: No abdominal pain, No nausea, No vomiting Musculoskeletal: No back pain, No joint pain, No muscle pain Skin: change in color, lesions, lumps, rash Past Gascdvg-Hoirhv-Cezmyt Hx Past Med/Social Hx: Reviewed Nursing Past Med/Soc Hx Patient Social History Drug of Choice: SMOKES METH Type Used: Cigarettes 2nd Hand Smoke Exposure: No Recent Hopitalizations: No Immunizations Up To Date Tetanus Booster (TDap): Unknown Date of Influenza Vaccine: Feb 13, 2019 Seasonal Allergies Seasonal Allergies: No Past Medical History Surgeries: Yes (RIGHT ANKLE; I&D OF RIGHT BUTTOCK ABSCESS 02/08/19) Orthopedic Respiratory: No Cardiac: No Neurological: No Genitourinary: No Gastrointestinal: No Musculoskeletal: Yes (RIGHT ANKLE SURGERY) Fractures Endocrine: No HEENT: No Cancer: No Psychosocial: No Integumentary: No (ABSCESS RIGHT BUTTOCK I&D 02/08/19) Recent Skin Changes Blood Disorders: No Family Medical History Diabetes, Hypertension Physical Exam Vital Signs Capillary Refill : General Appearance: WD/WN, no apparent distress HEENT: PERRL/EOMI, normal ENT inspection Neck: non-tender, supple Cardiovascular: regular rate, rhythm, no JVD Respiratory: chest non-tender, lungs clear Gastrointestinal: non tender, soft Back: normal inspection, no CVA tenderness Extremities: non-tender, no pedal edema Neurologic/Psychiatric: no motor/sensory deficits, alert, normal mood/affect Skin: other (erythema and induration R chest lateral to areola/ nipple. Area of induration (2cm), non-fluctuant. Scattered erythematous papules of face) Departure Impression Primary Impression: Abscess of breast Additional Impression: History of MRSA infection Disposition: HOME, SELF-CARE Condition: Stable Departure-Patient Inst. Decision time for Depature: 11:59 Referrals: [facility] [place] NO,LOCAL PHYSICIAN (PCP) Primary Care Physician Patient Instructions: MRSA (DC) Add. Discharge Instructions: Follow up (establish care)- [facility] [place] in 2 days, return to the ER if not improving or worse. All discharge instructions reviewed with patient and/or family. Voiced underst anding. Scripts Mupirocin Calcium (Mupirocin) 15 Gm Cream..g. 15 GM TP TID, #1 TUBE Prov: GALA PEÑA DO 08/03/20 Sulfamethoxazole/Trimethoprim (Bactrim Ds Tablet) 1 Each Tablet 1 EACH PO BID, #20 TAB 0 Refills Prov: GALA PEÑA DO 08/03/20 GALA PEÑA DO Aug 03, 2020 12:01"
== END 2020-08-03 12:12 | disposition home or self-care (01) ==
LOC: EDUNIT# 11:36 → ER FS 11:38
DX: N61.1 Abscess of the breast and nipple (principal); Z86.14 Personal history of Methicillin resistant Staphylococcus aureus infection
CPT/HCPCS: 99282

== ENCOUNTER 2021-09-05 00:13 | Emergency (ER) | payer SELFPAY ==
[~2021-09-05 00:13] MED LIST changes: +MUPI15CR11 TP; -SULF1TAB35 PO; +SULF1TAB38 PO
[2021-09-05] MEDS ORDERED: FAMOTIDINE 20 MG (PEPCID) TABLET PO STA (00:29)
[2021-09-05] MEDS ORDERED: LIDOCAINE 2% VISCOUS 15 ML UDC PO ONE (00:30)
[2021-09-05] MEDS ORDERED: KETOROLAC 30 MG/ML VIAL IVP ONE (00:30)
[2021-09-05] MEDS ORDERED: ANTACID SUSP 30 ML UDC (MYLANTA) PO ONE (00:30)
[2021-09-05] MEDS ORDERED: LORazepam 0.5 MG (ATIVAN) TABLET PO STA (00:33)
--- NOTE | 2021-09-05 00:33 | ED Cardiac General ---
History of Present Illness General Stated Complaint: LEFT SIDE PAIN Source: patient, EMS Exam Limitations: no limitations History of Present Illness Date Seen by Provider: Sep 05, 2021 Time Seen by Provider: 00:20 Initial Comments 46-year-old male with methamphetamine use disorder coming in via EMS from home due to left-sided chest discomfort and cramping discomfort going down to his left lower extremity. Started 3 hours ago, constant, moderate, has had symptoms similar to this in the past. EMS reports normal vitals and EKG. He denies feeling short of breath, fever, nausea, vomiting, diarrhea, weakness, numbness, or any other concerns. Does have a mild headache. Reports using meth yesterday and he smokes it. Allergies and Home Medications Allergies Coded Allergies: No Known Drug Allergies (Unverified , 02/08/19) Patient Home Medication List Home Medication List Reviewed: Yes Mupirocin Calcium (Mupirocin) 15 Gm Cream..g., 15 GM TP TID Prescribed by: GALA PEÑA on 08/03/20 1201 Sulfamethoxazole/Trimethoprim (Bactrim Ds Tablet) 1 Each Tablet, 1 EACH PO BID Prescribed by: HARLEEN ROY on 02/09/20 2312 Sulfamethoxazole/Trimethoprim (Bactrim Ds Tablet) 1 Each Tablet, 1 EACH PO BID Prescribed by: GALA PEÑA on 08/03/20 1201 Review of Systems Review of Systems Constitutional: No fever EENTM: No Blurred Vision Respiratory: Denies Cough, Denies Shortness of Air Cardiovascular: Chest Pain Gastrointestinal: Denies Abdominal Pain, Denies Nausea, Denies Vomiting Genitourinary: No Symptoms Reported Musculoskeletal: see HPI Skin: no symptoms reported Psychiatric/Neurological: No Symptoms Reported Endocrine: No Symptoms Reported Hematologic/Lymphatic: No Symptoms Reported All Other Systems Reviewed Negative Unless Noted: Yes Past Kchvpbr-Ozvumk-Djeziz Hx Patient Social History Substance use?: Yes Substance type: Methamphetamine Immunizations Up To Date Tetanus Booster (TDap): Unknown Seasonal Allergies Seasonal Allergies: No Past Medical History Surgeries: Yes (RIGHT ANKLE; I&D OF RIGHT BUTTOCK ABSCESS 02/08/19) Orthopedic Respiratory: No Cardiac: No Neurological: No Genitourinary: No Gastrointestinal: No Musculoskeletal: Yes (RIGHT ANKLE SURGERY) Fractures Endocrine: No HEENT: No Cancer: No Psychosocial: No Integumentary: No (ABSCESS RIGHT BUTTOCK I&D 02/08/19) Recent Skin Changes Blood Disorders: No Family Medical History Diabetes, Hypertension Physical Exam Vital Signs Vital Signs - First Documented 09/05/21 00:23 Temp 36.8 Pulse 89 Resp 20 B/P (MAP) 130/90 (103) Pulse Ox 99 O2 Delivery Room Air Capillary Refill : Height, Weight, BMI Height: '" Weight: lbs. oz. kg; 32.00 BMI Method: General Appearance: No Apparent Distress, WD/WN HEENT: PERRL/EOMI, Normal ENT Inspection, Pharynx Normal Neck: Full Range of Motion, Normal Inspection, Non Tender, Supple Respiratory: Chest Non Tender, Lungs Clear, Normal Breath Sounds, No Accessory Muscle Use, No Respiratory Distress Cardiovascular: Regular Rate, Rhythm, No Edema, Normal Peripheral Pulses Gastrointestinal: Normal Bowel Sounds, Non Tender, Soft; No Distended, No Guarding Extremity: Normal Capillary Refill, Normal Inspection, Normal Range of Motion, Non Tender, No Calf Tenderness, No Pedal Edema Neurologic/Psychiatric: Alert, Oriented x3, No Motor/Sensory Deficits, Normal Mood/Affect, chucker II-XII Norm as Tested, Other (Normal gait, normal ctwerj-[id number], normal visual acuity, normal visual roldan) Skin: Normal Color, Warm/Dry Lymphatic: No Adenopathy Progress/Results/Core Measures Results/Orders Lab Results Laboratory Tests Test 09/05/21 00:27 Range/Units White Blood Count 11.2 H 4.3-11.0 10^3/uL Red Blood Count 4.73 4.30-5.52 10^6/uL Hemoglobin 14.1 13.3-17.7 g/dL Hematocrit 42 40-54 % Mean Corpuscular Volume 89 80-99 fL Mean Corpuscular Hemoglobin 30 25-34 pg Mean Corpuscular Hemoglobin Concent 33 32-36 g/dL Red Cell Distribution Width 13.7 10.0-14.5 % Platelet Count 351 130-400 10^3/uL Mean Platelet Volume 9.5 9.0-12.2 fL Neutrophils (%) (Auto) 51 42-75 % Lymphocytes (%) (Auto) 31 12-44 % Monocytes (%) (Auto) 9 0-12 % Eosinophils (%) (Auto) 9 0-10 % Basophils (%) (Auto) 0 0-10 % Neutrophils # (Auto) 5.7 1.8-7.8 X 10^3 Lymphocytes # (Auto) 3.4 1.0-4.0 X 10^3 Monocytes # (Auto) 1.0 0.0-1.0 X 10^3 Eosinophils # (Auto) 1.0 H 0.0-0.3 10^3/uL Basophils # (Auto) 0.1 0.0-0.1 10^3/uL Prothrombin Time 13.5 12.2-14.7 SEC INR Comment 1.0 0.8-1.4 Activated Partial Thromboplast Time 23 L 24-35 SEC Sodium Level 142 135-145 MMOL/L Potassium Level 3.8 3.6-5.0 MMOL/L Chloride Level 108 H 98-107 MMOL/L Carbon Dioxide Level 24 21-32 MMOL/L Anion Gap 10 5-14 MMOL/L Blood Urea Nitrogen 13 7-18 MG/DL Creatinine 0.96 0.60-1.30 MG/DL Estimat Glomerular Filtration Rate 100 BUN/Creatinine Ratio 14 Glucose Level 104 70-105 MG/DL Calcium Level 9.9 8.5-10.1 MG/DL Corrected Calcium 9.5 8.5-10.1 MG/DL Magnesium Level 2.1 1.6-2.4 MG/DL Total Bilirubin 0.3 0.1-1.0 MG/DL Aspartate Amino Transf (AST/SGOT) 27 5-34 U/L Alanine Aminotransferase (ALT/SGPT) 26 0-55 U/L Alkaline Phosphatase 81 40-136 U/L Myoglobin 93.0 H <72.0 NG/ML Troponin I < 0.30 <0.30 NG/ML Total Protein 7.1 6.4-8.2 GM/DL Albumin 4.5 3.2-4.5 GM/DL My Orders Orders - MAKENNA CRAWLEY MD Cbc With Automated Diff (09/05/21 00:29) Magnesium (09/05/21 00:29) Chest 1 View Ap/Pa Only (09/05/21 00:29) Ekg Tracing (09/05/21 00:29) Comprehensive Metabolic Panel (09/05/21 00:29) Myoglobin Serum (09/05/21 00:29) Protime With Inr (09/05/21 00:29) Partial Thromboplastin Time (09/05/21 00:29) O2 (09/05/21 00:29) Monitor-Rhythm Ecg Trace Only (09/05/21 00:29) Ed Iv/Invasive Line Start (09/05/21 00:29) Troponin I Fs (09/05/21 00:29) Lidocaine 2% Viscous 15 Ml (Xylocaine Vi (09/05/21:30) Famotidine Tablet (Pepcid Tablet) (09/05/21 00:29) Antacid Suspension (Mylanta Suspension (09/05/21 00:30) Ed Iv/Invasive Line Start (09/05/21 00:29) Ketorolac Injection (Toradol Injection) (09/05/21:30) Lorazepam Tablet (Ativan Tablet) (09/05/21 00:33) Medications Given in ED Current Medications Medications Dose Ordered Sig/Luciano Route Start Time Stop Time Status Last Admin Dose Admin Al Hydrox/Mg Hydrox/Simethicone 30 ml ONCE ONCE PO 09/05/21 00:30 09/05/21 00:31 DC 09/05/21 00:39 30 ML Ketorolac Tromethamine 15 mg ONCE ONCE IVP 09/05/21 00:30 09/05/21 00:31 DC 09/05/21 00:39 15 MG Lidocaine HCl 15 ml ONCE ONCE PO 09/05/21 00:30 09/05/21 00:31 DC 09/05/21 00:39 15 ML Vital Signs/I&O 09/05/21 00:23 Temp 36.8 Pulse 89 Resp 20 B/P (MAP) 130/90 (103) Pulse Ox 99 O2 Delivery Room Air Progress Progress Note : Progress Note 46-year-old male with above history coming in due to left-sided chest discomfort going down his leg. ABCs were intact and vitals were stable on presentation. Physical exam reassuring including equal distal pulses, no neurodeficit, and otherwise completely normal exam. EKG with no ischemic changes. Chest x-ray with no acute findings including narrow mediastinum. He would be low risk for aortic dissection with the lack of any objective findings, and has been suff iciently ruled out. He is otherwise low risk per [place] criteria for PE and is PERC negative. An IV was placed and basic labs were obtained including cardiac biomarkers. Troponin is negative and given he has had constant pain for over 3 hours, ACS is unlikely at this point. He was given a GI cocktail as well as an anti-inflammatory pain medicine. Pain has improved. I believe he is stable for discharge with outpatient follow-up. He was sent home with strict return precautions Initial ECG Impression Date: Sep 05, 2021 Initial ECG Impression Time: 00:31 Initial ECG Rate: 79 Initial ECG Rhythm: Normal Sinus Comment Narrow QRS, normal axis, no significant ST changes or T wave abnormalities Diagnostic Imaging Diagonstic Imaging: Xray Plain Films/CT/US/NM/MRI: chest Comments X-ray of the chest ordered and interpreted by me showing no opacities or infiltrates, normal cardiac silhouette, narrow mediastinum, no pneumothorax Departure Impression Primary Impression: Left-sided chest wall pain Additional Impression: Left leg pain Disposition: HOME, SELF-CARE Condition: Stable Departure-Patient Inst. Decision time for Depature: 01:00 Referrals: [facility],LOCAL PHYSICIAN (PCP) Primary Care Physician Patient Instructions: Chest Pain (DC) Add. Discharge Instructions: It is possible this is just muscular in nature. It does not appear to be anything life-threatening at this time. I recommend taking [id number] anti-inflammatory medicines. Follow-up with [facility] here in town. They will see you even if you do not have insurance. Work/School Note: Work Release Form Date Seen in the Emergency Department: Sep 05, 2021 Return to Work: Sep 06, 2021 Restrictions: No Restrictions MAKENNA CRAWLEY MD Sep 05, 2021 00:33
[2021-09-05 00:36] LABS: BASOPHILS # (AUTO) 0.1 10^3/uL (0.0-0.1); BASOPHILS % (AUTO) 0 % (0-10); EOSINOPHILS % (AUTO) 9 % (0-10); HEMATOCRIT 42 % (40-54); HEMOGLOBIN 14.1 g/dL (13.3-17.7); LYMPHOCYTES # (AUTO) 3.4 X 10^3 (1.0-4.0); LYMPHOCYTES % (AUTO) 31 % (12-44); MEAN CORPUSCULAR HEMOGLOBIN 30 pg (25-34); MEAN CORPUSCULAR HGB CONC 33 g/dL (32-36); MEAN CORPUSCULAR VOLUME 89 fL (80-99); MEAN PLATELET VOLUME 9.5 fL (9.0-12.2); MONOCYTES % (AUTO) 9 % (0-12); NEUTROPHILS # (AUTO) 5.7 X 10^3 (1.8-7.8); NEUTROPHILS % (AUTO) 51 % (42-75); PLATELET COUNT 351 10^3/uL (130-400); WHITE BLOOD COUNT 11.2 10^3/uL (4.3-11.0)
[2021-09-05 00:41] LABS: PROTHROMBIN TIME PATIENT 13.5 SEC (12.2-14.7)
[2021-09-05 00:52] LABS: BILIRUBIN,TOTAL 0.3 MG/DL (0.1-1.0); CALCIUM 9.9 MG/DL (8.5-10.1); CREATININE SERUM 0.96 MG/DL (0.60-1.30); MAGNESIUM 2.1 MG/DL (1.6-2.4); POTASSIUM 3.8 MMOL/L (3.6-5.0)
[2021-09-05 00:53] LABS: ALBUMIN 4.5 GM/DL (3.2-4.5); TOTAL PROTEIN 7.1 GM/DL (6.4-8.2)
[2021-09-05 00:57] VITALS: BP 124/78
--- NOTE | 2021-09-05 06:13 | Diagnostic Imaging Report ---
EXAMINATION: Chest 1 view HISTORY: chest pain COMPARISON: None available. FINDINGS: Heart size and pulmonary vasculature are normal. The lungs are clear without consolidation, pleural effusion, or pneumothorax. The osseous structures are intact. The right costophrenic angle is not entirely visualized. IMPRESSION: 1. No acute radiographic abnormality in the chest. Dictated by: Dictated on workstation # [id number]
== END 2021-09-05 01:05 | disposition home or self-care (01) ==
LOC: EDUNIT# 00:13 → ER FS 00:22
DX: R07.89 Other chest pain (principal); M79.605 Pain in left leg; Z28.310 Unvaccinated for COVID-19
CPT/HCPCS: 36415; 71045; 80053; 83735; 83874; 84484; 85025; 85610; 85730; 93005; 93041